=== PATIENT | male | born 1975 | race Caucasian/White ===

== ENCOUNTER 2021-02-13 21:26 | Inpatient (IN) | payer OTHER ==
[2021-02-13] MEDS ORDERED: SODIUM CHLORIDE 0.9% 1,000 ML IV ONE (21:50)
--- NOTE | 2021-02-13 21:58 | ED ---
General Adult HPI - General Chief complaint: Back Pain/Injury Stated complaint: Kindey infection Time Seen by Provider: 02/13/21 21:35 Source: patient Mode of arrival: wheelchair Limitations: no limitations - History of Present Illness Initial comments: 45 year-old male patient who is paraplegic, wheelchair bound presents to the emergency department for evaluation of bilateral flank pain, low back, and abdominal spasms. Patient states that symptoms have been worsening over the last week. States over the last few days he noted that his urine has been dark orange/brown color. Reports excessive sweating which he states is his body's usual response to pain. Denies any known fevers. Denies nausea or vomiting. States that his stools have been normal. He does straight cath for urine. States he has known enlargement of the left kidney, he is still awaiting appointment with urology to figure out why. Did have an emergency visit at [facility] last week, CT showed severe left sided hydronephrosis, no ureter dilation. Patient is concerned he may have a kidney infection. Patient denies any recent rash, cough, shortness of breath, chest pain, numbness, tingling, dizziness, weakness, headache, visual changes, or any other complaints. - Related Data Allergies Allergy/AdvReac Type Severity Reaction Status Date / Time Penicillins Allergy Unknown Verified 02/13/21 21:33 Review of Systems ROS Statement: Those systems with pertinent positive or pertinent negative responses have been documented in the HPI. ROS Other: All systems not noted in ROS Statement are negative. Past Medical History Additional Past Medical History / Comment(s): C-6, C-7 quad 1992 History of Any Multi-Drug Resistant Organisms: MRSA Date of last positivie culture/infection: 2016 MDRO Source:: arm Additional Past Surgical History / Comment(s): orthopedic Past Psychological History: No Psychological Hx Reported Smoking Status: Never smoker Past Alcohol Use History: None Reported Past Drug Use History: None Reported General Exam Limitations: no limitations General appearance: alert, in no apparent distress, other (This is a well- developed, well-nourished adult male patient in no acute distress. Vital signs upon presentation are 98.5F, pulse 90, respirations 18, blood pressure 167/81, pulse ox 98% on room air.) Eye exam: Present: normal appearance, PERRL, EOMI. Absent: scleral icterus, conjunctival injection, periorbital swelling ENT exam: Present: normal exam, normal oropharynx, mucous membranes moist Respiratory exam: Present: normal lung sounds bilaterally. Absent: respiratory distress, wheezes, rales, rhonchi, stridor Cardiovascular Exam: Present: regular rate, normal rhythm, normal heart sounds. Absent: systolic murmur, diastolic murmur, rubs, gallop, clicks GI/Abdominal exam: Present: soft, normal bowel sounds. Absent: distended, tenderness, guarding, rebound, rigid Back exam: Present: normal inspection, CVA tenderness (R), CVA tenderness (L) Neurological exam: Present: alert, oriented X3, CN II-XII intact Psychiatric exam: Present: normal affect, normal mood Skin exam: Present: warm, dry, intact, normal color. Absent: rash Course Vital Signs 02/13/21 21:28 Temperature 98.5 F Pulse Rate 90 Respiratory 18 Rate Blood Pressure 167/81 O2 Sat by Pulse 98 Oximetry Medical Decision Making - Medical Decision Making 45-year-old male patient who is paraplegic presents to the emergency department today for evaluation of bilateral flank pain, abdominal cramping, dark urine. Physical examination did reveal bilateral CVA tenderness. Abdominal distention. Labs reviewed and did reveal white blood cell count at 13.9, BUN 23, creatinine 0.74. Urinalysis did show 1+ protein, 1+ bilirubin, large leukocyte esterase, 29 white blood cells, moderate urine mucus. Patient did have out side CT performed at [facility] on 02/04/2021 which showed severe left-sided hyd ronephrosis. Renal collecting system is dilated up to 15.2 cm. Gallbladder was contracted. No biliary ductal dilatation. Patient be admitted to the hospital for evaluation by urology and for IV antibiotics. He is agreeable this plan. Case discussed with my attending Dr. Lauren. - Lab Data Result diagrams: 02/13/21 22:00 02/13/21 22:00 Lab Results 02/13/21 02/13/21 02/13/21 Range/Units 22:00 22:00 22:00 WBC 13.9 H (3.8-10.6) k/uL RBC 4.42 (4.30-5.90) m/uL Hgb 12.9 L (13.0-17.5) gm/dL Hct 38.1 L (39.0-53.0) % MCV 86.3 (80.0-100.0) fL MCH 29.1 (25.0-35.0) pg MCHC 33.7 (31.0-37.0) g/dL RDW 13.4 (11.5-15.5) % Plt Count 780 H (150-450) k/uL MPV 6.5 Neutrophils % 89 % Lymphocytes % 6 % Monocytes % 3 % Eosinophils % 1 % Basophils % 0 % Neutrophils # 12.4 H (1.3-7.7) k/uL Lymphocytes # 0.9 L (1.0-4.8) k/uL Monocytes # 0.5 (0-1.0) k/uL Eosinophils # 0.1 (0-0.7) k/uL Basophils # 0.1 (0-0.2) k/uL Sodium 137 (137-145) mmol/L Potassium 4.8 (3.5-5.1) mmol/L Chloride 100 (98-107) mmol/L Carbon Dioxide 27 (22-30) mmol/L Anion Gap 10 mmol/L BUN 23 H (9-20) mg/dL Creatinine 0.74 (0.66-1.25) mg/dL Est GFR (CKD-EPI)AfAm >90 (>60 ml/min/1.73 sqM) Est GFR (CKD-EPI)NonAf >90 (>60 ml/min/1.73 sqM) Glucose 189 H (74-99) mg/dL Plasma Lactic Acid [place] (0.7-2.0) mmol/L Calcium 8.9 (8.4-10.2) mg/dL Total Bilirubin 0.8 (0.2-1.3) mg/dL AST 52 (17-59) U/L ALT 64 H (4-49) U/L Alkaline Phosphatase 181 H (38-126) U/L Total Protein 6.6 (6.3-8.2) g/dL Albumin 3.2 L (3.5-5.0) g/dL Urine Color Yellow Urine Appearance Clear (Clear) Urine pH 5.5 (5.0-8.0) Ur Specific [place] 1.033 (1.001-1.035) Urine Protein 1+ H (Negative) Urine Glucose (UA) Negative (Negative) Urine Ketones Negative (Negative) Urine Blood Negative (Negative) Urine Nitrite Negative (Negative) Urine Bilirubin 1+ H (Negative) Urine Urobilinogen 4.0 (<2.0) mg/dL Ur Leukocyte Esterase Large H (Negative) Urine RBC 2 (0-5) /hpf Urine WBC 29 H (0-5) /hpf Ur Squamous Epith Cells 3 (0-4) /hpf Hyaline Casts 1 (0-2) /lpf Urine Mucus Moderate H (None) /hpf 02/13/21 Range/Units 22:00 WBC (3.8-10.6) k/uL RBC (4.30-5.90) m/uL Hgb (13.0-17.5) gm/dL Hct (39.0-53.0) % MCV (80.0-100.0) fL MCH (25.0-35.0) pg MCHC (31.0-37.0) g/dL RDW (11.5-15.5) % Plt Count (150-450) k/uL MPV Neutrophils % % Lymphocytes % % Monocytes % % Eosinophils % % Basophils % % Neutrophils # (1.3-7.7) k/uL Lymphocytes # (1.0-4.8) k/uL Monocytes # (0-1.0) k/uL Eosinophils # (0-0.7) k/uL Basophils # (0-0.2) k/uL Sodium (137-145) mmol/L Potassium (3.5-5.1) mmol/L Chloride (98-107) mmol/L Carbon Dioxide (22-30) mmol/L Anion Gap mmol/L BUN (9-20) mg/dL Creatinine (0.66-1.25) mg/dL Est GFR (CKD-EPI)AfAm (>60 ml/min/1.73 sqM) Est GFR (CKD-EPI)NonAf (>60 ml/min/1.73 sqM) Glucose (74-99) mg/dL Plasma Lactic Acid [place] 1.7 (0.7-2.0) mmol/L Calcium (8.4-10.2) mg/dL Total Bilirubin (0.2-1.3) mg/dL AST (17-59) U/L ALT (4-49) U/L Alkaline Phosphatase (38-126) U/L Total Protein (6.3-8.2) g/dL Albumin (3.5-5.0) g/dL Urine Color Urine Appearance (Clear) Urine pH (5.0-8.0) Ur Specific [place] (1.001-1.035) Urine Protein (Negative) Urine Glucose (UA) (Negative) Urine Ketones (Negative) Urine Blood (Negative) Urine Nitrite (Negative) Urine Bilirubin (Negative) Urine Urobilinogen (<2.0) mg/dL Ur Leukocyte Esterase (Negative) Urine RBC (0-5) /hpf Urine WBC (0-5) /hpf Ur Squamous Epith Cells (0-4) /hpf Hyaline Casts (0-2) /lpf Urine Mucus (None) /hpf Disposition Clinical Impression: UTI (urinary tract infection), Hydronephrosis, left Disposition: ADMITTED IP TO THIS [facility] Condition: Serious Referrals: Jameson Lewis MD [Primary Care Provider] - 1-2 days Decision to Admit Reason: Admit from [facility] Decision Date: 02/13/21 Decision Time: 23:37
[2021-02-13 22:07] LABS: Basophils # (A) 0.1 k/uL (0-0.2); Basophils % (A) 0 %; Eosinophils # (A) 0.1 k/uL (0-0.7); Eosinophils % (A) 1 %; HCT 38.1 % (39.0-53.0); HGB 12.9 gm/dL (13.0-17.5); Lymphocytes # (A) 0.9 k/uL (1.0-4.8); Lymphocytes % (A) 6 %; MCH 29.1 pg (25.0-35.0); MCHC 33.7 g/dL (31.0-37.0); MCV 86.3 fL (80.0-100.0); Mean Platelet Volume 6.5; Monocytes # (A) 0.5 k/uL (0-1.0); Monocytes % (A) 3 %; Neutrophils # (A) 12.4 k/uL (1.3-7.7); Neutrophils % (A) 89 %; Platelet Count 780 k/uL (150-450); RBC 4.42 m/uL (4.30-5.90); RDW 13.4 % (11.5-15.5); WBC 13.9 k/uL (3.8-10.6)
[2021-02-13 22:19] LABS: ALT 64 U/L (4-49); AST 52 U/L (17-59); African American GFR (CKD) >90 (>60 ml/min/1.73 sqM); Albumin 3.2 g/dL (3.5-5.0); Alkaline Phosphatase 181 U/L (38-126); Anion Gap 10 mmol/L; Blood Urea Nitrogen 23 mg/dL (9-20); Calcium 8.9 mg/dL (8.4-10.2); Carbon Dioxide 27 mmol/L (22-30); Chloride 100 mmol/L (98-107); Glucose 189 mg/dL (74-99); Non-African American GFR(CKD) >90 (>60 ml/min/1.73 sqM); Potassium 4.8 mmol/L (3.5-5.1); Sodium 137 mmol/L (137-145); Total Bilirubin 0.8 mg/dL (0.2-1.3); Total Protein 6.6 g/dL (6.3-8.2)
[2021-02-13 22:47] LABS: Appearance,Urine Clear (Clear); Bilirubin,Urine 1+ (Negative); Blood,Urine Negative (Negative); Color,Urine Yellow; Glucose,Urine (UA) Negative (Negative); Hyaline Casts,Urine 1 /lpf (0-2); Ketones,Urine Negative (Negative); Leukocyte Esterase,Urine Large (Negative); Mucus,Urine Moderate /hpf; Nitrite,Urine Negative (Negative); PH, Urine 5.5 (5.0-8.0); Protein,Urine 1+ (Negative); RBC,Urine 2 /hpf (0-5); Specific Gravity,Urine 1.033 (1.001-1.035); Squamous Epithelial Cell,Urine 3 /hpf (0-4); WBC,Urine 29 /hpf (0-5)
[2021-02-13] MEDS ORDERED: NALOXONE 0.4 MG/ML 1 ML VIAL IV PRN (23:20)
[2021-02-13] MEDS: SODIUM CHLORIDE 0.9% 1,000 ML IV SCH (23:26)
[2021-02-13] MEDS ORDERED: ONDANSETRON 4 MG/2 ML VIAL IVP STA (23:37)
[2021-02-13] MEDS ORDERED: HYDROmorphone 1 MG/ML 1 ML SYRINGE IVP STA (23:37)
[2021-02-14] MEDS: HYDROmorphone 1 MG/ML 1 ML SYRINGE IVP PRN ×5 (00:28→20:45)
[2021-02-14] MEDS: OXYBUTYNIN CHLORIDE 5 MG TAB PO SCH (07:52)
[2021-02-14] MEDS: BACLOFEN 10 MG TAB PO SCH ×2 (07:52→19:43)
[2021-02-14] MEDS ORDERED: AMPHETAMINE PO PRN (10:29)
[2021-02-14] MEDS ORDERED: [UNRECOGNIZED DRUG - OTHER] PO PRN (10:29)
[2021-02-14] MEDS ORDERED: DEXTROAMPHETAMINE PO PRN (10:29)
--- NOTE | 2021-02-14 10:32 | P.GSCN ---
History of Present Illness Consult date: 02/14/21 Reason for Consult: Left Hydronephrosis History of present illness: This is a 45-year-old male paraplegic, secondary to C5 spinal cord injury. He presented to the hospital with severe left flank pain, of note he was recently evaluated at [facility], CT scan was obtained at that time that showed severe hydronephrosis on the left, with a normal right contralateral kidney. He indicated he has history of chronic hydronephrosis, previously evaluated in [place]. Underwent a stent placement in [place] in 2017, stent was placed for hydronephrosis and pain, and at that time his pain resolved after stent placement, the stent was subsequently removed, and he has not followed up since that time. He has hx of neurogenic bladder, being managed by [facility]. He also complains of new onset constipation. Evaluation he is complaining of left flank pain, he is also complaining of flushing and sweating. Denies any dysuria, gross hematuria, fevers or chills. Review of Systems - Constitutional Reports night sweats, Reports sweats, Denies chills, Denies fever - EENT Ears, nose, mouth and throat: Denies dysphagia - Cardiovascular Denies chest pain, Denies shortness of breath - Respiratory Denies cough, Denies 7 - Gastrointestinal Reports constipation - Genitourinary Reports flank pain, Denies dysuria, Denies hematuria - Neurological Denies headaches, Denies syncope Past Medical History Additional Past Medical History / Comment(s): C-6, C-7 quad 1992 History of Any Multi-Drug Resistant Organisms: MRSA Year Discovered:: 2016 MDRO Source:: arm Additional Past Surgical History / Comment(s): orthopedic Past Psychological History: No Psychological Hx Reported Smoking Status: Never smoker Past Alcohol Use History: None Reported Past Drug Use History: None Reported Medications and Allergies Home Medications Medication Instructions Recorded Confirmed Type Baclofen [Lioresal] 10 mg PO BID-W/MEALS 02/13/21 02/13/21 History Dextroamphetamine/Amphetamine 15 mg PO BID PRN 02/13/21 02/13/21 History [Dextroamp-Amphetamin 15 mg Tab] Oxybutynin Chloride 5 mg PO DAILY 02/13/21 02/13/21 History Testosterone Cypionate 200 mg IM MO 02/13/21 02/13/21 History [Depo-Testosterone] Allergies Allergy/AdvReac Type Severity Reaction Status Date / Time Penicillins Allergy Unknown Verified 02/13/21 21:33 Surgical - Exam Vital Signs Temp Pulse Resp BP Pulse Ox 98.5 F 90 18 167/81 98 02/13/21 21:28 02/13/21 21:28 02/13/21 21:28 02/13/21 21:28 02/13/21 21:28 - General well developed, well nourished, moderate distress, moderate pain - Eyes PERRL, normal ocular movement - ENT normal nares, normal mucosa - Respiratory normal expansion, normal respiratory effort - Abdomen Abdomen: soft, non tender, no distended - Psychiatric oriented to time, oriented to person, oriented to place, speech is normal Results - Labs 02/13/21 22:00 02/13/21 22:00 Abnormal Lab Results - Last 24 Hours (Table) 02/13/21 02/13/21 02/13/21 Range/Units 22:00 22:00 22:00 WBC 13.9 H (3.8-10.6) k/uL Hgb 12.9 L (13.0-17.5) gm/dL Hct 38.1 L (39.0-53.0) % Plt Count 780 H (150-450) k/uL Neutrophils # 12.4 H (1.3-7.7) k/uL Lymphocytes # 0.9 L (1.0-4.8) k/uL BUN 23 H (9-20) mg/dL Glucose 189 H (74-99) mg/dL ALT 64 H (4-49) U/L Alkaline Phosphatase 181 H (38-126) U/L Albumin 3.2 L (3.5-5.0) g/dL Urine Protein 1+ H (Negative) Urine Bilirubin 1+ H (Negative) Ur Leukocyte Esterase Large H (Negative) Urine WBC 29 H (0-5) /hpf Urine Mucus Moderate H (None) /hpf Microbiology - Last 24 Hours (Table) 02/13/21 22:00 Urine Culture - Preliminary Urine,Voided Diabetes panel 02/13/21 Range/Units 22:00 Sodium 137 (137-145) mmol/L Potassium 4.8 (3.5-5.1) mmol/L Chloride 100 (98-107) mmol/L Carbon Dioxide 27 (22-30) mmol/L BUN 23 H (9-20) mg/dL Creatinine 0.74 (0.66-1.25) mg/dL Glucose 189 H (74-99) mg/dL Calcium 8.9 (8.4-10.2) mg/dL AST 52 (17-59) U/L ALT 64 H (4-49) U/L Alkaline Phosphatase 181 H (38-126) U/L Total Protein 6.6 (6.3-8.2) g/dL Albumin 3.2 L (3.5-5.0) g/dL Calcium panel 02/13/21 Range/Units 22:00 Calcium 8.9 (8.4-10.2) mg/dL Albumin 3.2 L (3.5-5.0) g/dL Pituitary panel 02/13/21 Range/Units 22:00 Sodium 137 (137-145) mmol/L Potassium 4.8 (3.5-5.1) mmol/L Chloride 100 (98-107) mmol/L Carbon Dioxide 27 (22-30) mmol/L BUN 23 H (9-20) mg/dL Creatinine 0.74 (0.66-1.25) mg/dL Glucose 189 H (74-99) mg/dL Calcium 8.9 (8.4-10.2) mg/dL Adrenal panel 02/13/21 Range/Units 22:00 Sodium 137 (137-145) mmol/L Potassium 4.8 (3.5-5.1) mmol/L Chloride 100 (98-107) mmol/L Carbon Dioxide 27 (22-30) mmol/L BUN 23 H (9-20) mg/dL Creatinine 0.74 (0.66-1.25) mg/dL Glucose 189 H (74-99) mg/dL Calcium 8.9 (8.4-10.2) mg/dL Total Bilirubin 0.8 (0.2-1.3) mg/dL AST 52 (17-59) U/L ALT 64 H (4-49) U/L Alkaline Phosphatase 181 H (38-126) U/L Total Protein 6.6 (6.3-8.2) g/dL Albumin 3.2 L (3.5-5.0) g/dL Assessment and Plan Assessment: 45-year-old male paraplegic, secondary to C5 spinal cord injury. History of chronic hydronephrosis on left, previous stent placement for pain. On evaluation to bleeding left flank pain, also having signs of autonomic dy sreflexia. Given his pain and his neurological sign, we'll proceed with stent placement on the left. Discussed that this pain, and autonomic dysreflexia signs could be secondary to his constipation. But given his flank pain and the CT finding we'll proceed with stent placement, we'll also start him on a bowel regimen -OR for left stent placement -Continue antibiotics -Recommend neurology consult given his signs of autonomic dysreflexia, and his hx of spianl cord injury
[2021-02-14] MEDS ORDERED: LIDOCAINE 1% INJ 10MG/ML (20 ML MDV) ONE (10:35)
[2021-02-14] MEDS ORDERED: fentaNYL (PF) 50 MCG/ML 2 ML AMP ONE (10:35)
[2021-02-14] MEDS ORDERED: PROPOFOL 10 MG/ML 20 ML VIAL IV ONE (10:35)
[2021-02-14] MEDS ORDERED: MIDAZOLAM 2 MG/2 ML VIAL ONE (10:35)
[2021-02-14] MEDS ORDERED: LACTATED RINGERS 1,000 ML IV ONE (10:39)
[2021-02-14] MEDS ORDERED: SODIUM CHLORIDE 0.9% 50 ML with GENTAMICIN 80 MG IV ONE ×2 (10:57)
[2021-02-14] MEDS ORDERED: IOPAMIDOL-370 50ML BTL IRRIGATION ONE ×2 (11:01)
--- NOTE | 2021-02-14 11:37 | P.OP ---
Date of Procedure: 02/14/21 Preoperative Diagnosis: Left hydronephrosis Postoperative Diagnosis: Same Procedure(s) Performed: Cystoscopy, left retrograde pyelogram, stent placement Implants: 6-Latvian by 28 cm stent Anesthesia: MARICARMEN Surgeon: Nathanael Waletrs Estimated Blood Loss (ml): 1 Pathology: other (Left renal urine for culture) Condition: stable Disposition: PACU Indications for Procedure: This is a 45-year-old male paraplegic, he presented to the hospital with left flank pain, and signs concerning for autonomic dysreflexia. Computed tomography scan at [facility] showed severe left hydronephrosis, and no dilation of the ureter. Discussed with him given his flank pain, hydronephrosis, and neurological signs, the next steps to proceed with stent placement. Discussed the risk of the procedure. He understood all the risk and agreed to proceed Operative Findings: Severe left-sided hydronephrosis, narrowing in the proximal ureter. malrotated kidney, Description of Procedure: Patient brought to the operating room, general anesthesia was induced. He was prepped and draped in sterile fashion and placed in dorsal lithotomy position. A cystoscopy fitted with a 22-Latvian sheath was inserted per urethra, cystoscopy was performed which showed no abnormality within the bladder. Of note patient had an enlarged prostate with large median lobe. The left ureteral orifice was visualized and intubated with an open-ended catheter, retrograde pyelogram was performed which showed a normal caliber ureter, but along the proximal ureter there was severe narrowing and the ureter was medialized. There was severe dilation of the collecting system. Next a wire was advanced through the catheter and the catheter was advanced into the collecting system. At this point purulent urine was noticed draining from the catheter. At this time more than 250 mL of purulent urine was drained from the left collecting system and sent for culture. At this time the wire was readvanced through the catheter the catheter was removed with the wire in place. Next a ureteral stent was passed over the wire, the proximal curl was visualized on fluoroscopy and the distal curl was visualized using the cystoscope. The bladder was emptied and the case. 18-Latvian Guerrier was placed. Patient tolerated the procedure well was taken to PACU in stable condition
--- NOTE | 2021-02-14 11:51 | FL ---
EXAMINATION TYPE: FL urography retrograde DATE OF EXAM: 02/14/2021 COMPARISON: NONE HISTORY: Left-sided kidney stones. TECHNIQUE: Fluoroscopy. FINDINGS: Fluoroscopic guidance was provided during retrograde urogram with stent insertion procedur e performed by Dr. Lui. A total of 52 seconds of fluoroscopic time was utilized during the proced ure and 2 spot images was acquired. Images acquired show ureteral opacification subsequent advancemen t of a ureter stent. IMPRESSION: As Above.
[2021-02-14 12:41] VITALS: BMI 22.4
[2021-02-14] MEDS: SODIUM CHLORIDE 0.9% 1,000 ML IV SCH (15:44)
[2021-02-14] MEDS ORDERED: BACLOFEN 10 MG TAB PO SCH (17:30)
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
[2021-02-14] MEDS: ENOXAPARIN 40 MG/0.4 ML SYRINGE SQ SCH (19:42)
[2021-02-14] MEDS: PSYLLIUM HUSK 100% 6 GM PACKET PO SCH (19:43)
[2021-02-14] MEDS: MELATONIN 3 MG TABLET PO SCH (19:43)
--- NOTE | 2021-02-14 19:50 | XR ---
EXAM: Abdomen radiograph. HISTORY: Pain. TECHNIQUE: Supine AP view. COMPARISON: None available. FINDINGS: There is demonstration of a left ureteral stent. There is moderate amount of stool throughout the col on with mild colonic gas and nonobstructive bowel gas pattern. There are no pathologic calcifications . No acute osseous abnormality seen. IMPRESSION: Nonobstructive bowel gas pattern. Moderate stool burden.
[2021-02-14] MEDS: LACTATED RINGERS 1,000 ML IV SCH (21:09)
[2021-02-15] MEDS: HYDROmorphone 1 MG/ML 1 ML SYRINGE IVP PRN ×3 (01:52→20:27)
[2021-02-15] MEDS: LACTATED RINGERS 1,000 ML IV SCH ×4 (04:21→22:20)
[2021-02-15] MEDS: BACLOFEN 10 MG TAB PO SCH ×2 (08:16→20:27)
[2021-02-15] MEDS: OXYBUTYNIN CHLORIDE 5 MG TAB PO SCH (08:16)
[2021-02-15] MEDS: ENOXAPARIN 40 MG/0.4 ML SYRINGE SQ SCH (08:16)
[2021-02-15] MEDS: PSYLLIUM HUSK 100% 6 GM PACKET PO SCH ×2 (08:16→20:27)
[2021-02-15] MEDS ORDERED: OXYBUTYNIN CHLORIDE 5 MG TAB PO SCH (09:00)
--- NOTE | 2021-02-15 12:59 | P.PN ---
Subjective Progress Note Date: 02/15/21 Postoperative day #1, status post left stent placement. purulent urine drained from the left collecting system. vital signs stable, denies any flank pain or chills this am. Objective - Vital Signs Vital signs: Vital Signs Temp 98.7 F 02/15/21 07:37 Pulse 71 02/15/21 07:37 Resp 18 02/15/21 07:37 BP 143/82 02/15/21 07:37 Pulse Ox 98 02/15/21 07:37 Intake & Output 02/14/21 02/15/21 02/15/21 18:59 06:59 18:59 Intake Total 952 Output Total 751 600 Balance 201 -600 Weight 79.379 kg Intake: IV 952 Output: Urine 750 600 Estimated Blood Loss 1 Other: Voiding Method Indwelling Catheter Indwelling Catheter Indwelling Catheter # Bowel Movements 1 - Constitutional General appearance: Present: no acute distress - Gastrointestinal General gastrointestinal: Present: soft. Absent: distended - Psychiatric Psychiatric: Present: A&O x's 3 - Labs CBC & Chem 7: 02/13/21 22:00 02/13/21 22:00 Labs: Microbiology - Last 24 Hours (Table) 02/14/21 11:06 Urine Culture - Preliminary Urine,Voided Assessment and Plan Assessment: 45-year-old male paraplegic, secondary to C5 spinal cord injury. History of chronic hydronephrosis on left, previous stent placement for pain. On initial evaluation having left flank pain, also having signs of autonomic dysreflexia. POD #1 S/P stent placement. purulent urine drained from the left collecting system -Continue IV antibiotics, recommend to keep in the hospital, until urine cultures finalized from the left collecting system. We'll need minimum of 14 days of antibiotic -Can D/C tatum prior to discharge and can resume CIC as an outpatient -F/U 4 weeks in urology clinic
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
[2021-02-15] MEDS: MELATONIN 3 MG TABLET PO SCH (20:27)
[2021-02-16 02:05] VITALS: RESP 16
[2021-02-16] MEDS: HYDROmorphone 1 MG/ML 1 ML SYRINGE IVP PRN ×2 (05:49→12:49)
[2021-02-16 07:30] LABS: African American GFR (CKD) >90 (>60 ml/min/1.73 sqM); Anion Gap 5 mmol/L; Blood Urea Nitrogen 16 mg/dL (9-20); Calcium 8.3 mg/dL (8.4-10.2); Carbon Dioxide 30 mmol/L (22-30); Chloride 104 mmol/L (98-107); Glucose 99 mg/dL (74-99); Non-African American GFR(CKD) >90 (>60 ml/min/1.73 sqM); Potassium 4.6 mmol/L (3.5-5.1); Sodium 139 mmol/L (137-145)
[2021-02-16 07:56] LABS: Basophils % (A) 1 %; Eosinophils # (A) 0.1 k/uL (0-0.7); Eosinophils % (A) 1 %; HCT 38.1 % (39.0-53.0); HGB 12.8 gm/dL (13.0-17.5); Lymphocytes # (A) 1.3 k/uL (1.0-4.8); Lymphocytes % (A) 23 %; MCH 29.3 pg (25.0-35.0); MCHC 33.6 g/dL (31.0-37.0); MCV 87.3 fL (80.0-100.0); Mean Platelet Volume 6.7; Monocytes # (A) 0.4 k/uL (0-1.0); Monocytes % (A) 6 %; Neutrophils # (A) 4.1 k/uL (1.3-7.7); Neutrophils % (A) 69 %; Platelet Count 643 k/uL (150-450); RBC 4.36 m/uL (4.30-5.90); RDW 13.7 % (11.5-15.5)
[2021-02-16 07:57] VITALS: BP 151/85; PULSE 74; TEMP 97.8
[2021-02-16] MEDS: PSYLLIUM HUSK 100% 6 GM PACKET PO SCH (08:15)
[2021-02-16] MEDS: BACLOFEN 10 MG TAB PO SCH (08:16)
[2021-02-16] MEDS: ENOXAPARIN 40 MG/0.4 ML SYRINGE SQ SCH (08:16)
[2021-02-16] MEDS: OXYBUTYNIN CHLORIDE 5 MG TAB PO SCH (08:16)
[2021-02-16] MEDS ORDERED: TESTOSTERONE CYPIONATE 200 MG/ML 1ML VIAL IM SCH (09:00)
[2021-02-16] MEDS: LACTATED RINGERS 1,000 ML IV SCH (11:02)
[2021-02-16] MEDS ORDERED: AMOXIC-POT CLAV 875-125MG 1 EACH TAB PO STA (11:22)
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
== END 2021-02-16 13:18 | disposition home or self-care (01) | DRG 660 ==
LOC: EC 21:26 → 4SSUR 23:08
PROVIDERS: ADMIT Hospitalist; ATTEND Hospitalist
PROC: 0T778DZ Dilation of Left Ureter with Intraluminal Device, Via Natural or Artificial Opening Endoscopic (ICD-10-PCS; principal; 2021-02-14 09:59)
PROC: BT1F1ZZ Fluoroscopy of Left Kidney, Ureter and Bladder using Low Osmolar Contrast (ICD-10-PCS; 2021-02-14 09:59)
DX: N13.6 Pyonephrosis (principal); G82.20 Paraplegia, unspecified; N39.0 Urinary tract infection, site not specified; Z99.3 Dependence on wheelchair; Z86.14 Personal history of Methicillin resistant Staphylococcus aureus infection; S14.105S Unspecified injury at C5 level of cervical spinal cord, sequela; V49.9XXS Car occupant (driver) (passenger) injured in unspecified traffic accident, sequela; Z20.822 Contact with and (suspected) exposure to COVID-19; N31.9 Neuromuscular dysfunction of bladder, unspecified; K59.09 Other constipation; E88.09 Other disorders of plasma-protein metabolism, not elsewhere classified; R79.89 Other specified abnormal findings of blood chemistry; G90.4 Autonomic dysreflexia
CPT/HCPCS: 36415; 74018; 74420; 80048; 80053; 81001; 83605; 84145; 85025; 87086; 87635; 99285

== ENCOUNTER → 2021-04-15 | Outpatient (CLI) | payer OTHER ==
[2021-04-15 13:58] LABS: Basophils # (A) 0.1 k/uL (0-0.2); Basophils % (A) 1 %; Eosinophils # (A) 0.1 k/uL (0-0.7); Eosinophils % (A) 2 %; HCT 45.1 % (39.0-53.0); Lymphocytes # (A) 1.8 k/uL (1.0-4.8); Lymphocytes % (A) 33 %; MCH 30.1 pg (25.0-35.0); MCHC 33.2 g/dL (31.0-37.0); MCV 90.6 fL (80.0-100.0); Mean Platelet Volume 7.7; Monocytes # (A) 0.4 k/uL (0-1.0); Monocytes % (A) 8 %; Neutrophils # (A) 2.8 k/uL (1.3-7.7); Neutrophils % (A) 54 %; Platelet Count 258 k/uL (150-450); RBC 4.98 m/uL (4.30-5.90); RDW 15.2 % (11.5-15.5); WBC 5.3 k/uL (3.8-10.6)
[2021-04-15 14:00] LABS: Appearance,Urine Cloudy (Clear); Bacteria,Urine Many /hpf; Bilirubin,Urine Negative (Negative); Blood,Urine Small (Negative); Color,Urine Yellow; Glucose,Urine (UA) Negative (Negative); Ketones,Urine Negative (Negative); Leukocyte Esterase,Urine Large (Negative); Nitrite,Urine Positive (Negative); Protein,Urine 1+ (Negative); RBC,Urine 11 /hpf (0-5); Specific Gravity,Urine 1.011 (1.001-1.035); Squamous Epithelial Cell,Urine 2 /hpf (0-4); Urobilinogen,Urine <2.0 mg/dL (<2.0); WBC,Urine >182 /hpf (0-5)
[2021-04-15 14:05] LABS: African American GFR (CKD) >90 (>60 ml/min/1.73 sqM); Anion Gap 8 mmol/L; Blood Urea Nitrogen 17 mg/dL (9-20); Calcium 9.2 mg/dL (8.4-10.2); Carbon Dioxide 21 mmol/L (22-30); Chloride 104 mmol/L (98-107); Glucose 103 mg/dL (74-99); Non-African American GFR(CKD) >90 (>60 ml/min/1.73 sqM); Sodium 133 mmol/L (137-145)
[2021-04-15 14:08] LABS: Potassium 4.8 mmol/L (3.5-5.1)
== END | disposition home or self-care (01) ==
LOC: LABPAT 12:52
PROVIDERS: ATTEND Urology
DX: Z01.812 Encounter for preprocedural laboratory examination (principal); N13.30 Unspecified hydronephrosis; N39.0 Urinary tract infection, site not specified
CPT/HCPCS: 36415; 80048; 81001; 85025; 87077; 87086; 87186

== ENCOUNTER → 2021-04-15 | Outpatient (CLI) | payer OTHER ==
[~2021-04-15] MED LIST: FUROSEMIDE 10 MG/ML 2 ML VIAL IV ONE
--- NOTE | 2021-04-15 15:43 | NM ---
EXAMINATION TYPE: NM lasix renogram DATE OF EXAM: 04/15/2021 COMPARISON: NONE HISTORY: Hydronephrosis Following administration of 9.2 mCi Tc 99m MAG3 with 20mg Lasix. Immediate images post injection FINDINGS: Left: 22.4 %. Right: 77.6 %. Max renal flow left: 9 minutes. Max renal flow right: 77.6 minutes. Reduced accumulation of radiotracer within the left renal collecting systems. After the administratio n of Lasix, there is delayed excretion from the left. T 1/2 left: undefined minutes. T 1/2 right: 25 minutes. IMPRESSION: Abnormal split renal function as discussed above. Correlate for left-sided hydronephrosis. No ultraso und or CAT scan available for comparison.
== END | disposition home or self-care (01) ==
LOC: RADNMMAIN 13:25
PROVIDERS: ATTEND Urology
DX: N13.30 Unspecified hydronephrosis (principal)
CPT/HCPCS: 78708; A9562

== ENCOUNTER → 2021-04-24 | Day surgery (SDC) | payer OTHER ==
[2021-04-20 17:33] VITALS: BMI 23.1
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
[~2021-04-24] MED LIST changes: +DEXAMETHASONE SOD PHOSPHATE 4 MG/ML 1 ML VIAL IV ONE; -FUROSEMIDE 10 MG/ML 2 ML VIAL IV ONE; +GENTAMICIN 120 MG in SODIUM CHLORIDE 0.9% 100 ML IVPB PRN; +IOPAMIDOL-370 50ML BTL MISCELLANE ONE; +LACTATED RINGERS 1,000 ML IV ONE; +LACTATED RINGERS 1,000 ML IV SCH; +LIDOCAINE 1% (10MG/ML) FOR IV START INTRADERMA PRN; +ONDANSETRON 4 MG/2 ML VIAL IVP ONE; +ONDANSETRON 4 MG/2 ML VIAL ONE
--- NOTE | 2021-04-24 16:54 | P.OP ---
Date of Procedure: 04/24/21 Preoperative Diagnosis: Left hydronephrosis Postoperative Diagnosis: Same Procedure(s) Performed: Cystoscopy, left retrograde pyelogram, ureteroscopy, ureteral balloon dilation, stent exchange Implants: 6-Nicaraguan by 28 cm stent Anesthesia: MARICARMEN Surgeon: Nathanael Walters Estimated Blood Loss (ml): 5 Pathology: none sent Condition: stable Disposition: PACU Indications for Procedure: This is a 46-year-old paraplegic male with history of chronic left hydrone phrosis. He presented to the hospital back on February 13, with sepsis secondary to UTI. He had a CT scan done that showed hydronephrosis. He underwent a stent placement on February 14, purulent drainage was drained from the collecting system. He subsequently underwent a MAG3 renogram that showed evidence of 22% split function in the left kidney. Of note on his initial CT on presentation there was no evidence of ureteral dilation, and the finding was concerning for UPJ obstruction. Discussed with him next up will be to proceed with a left retrograde pyelogram, to better evaluate the ureter. Discussed with him will plan on doing a ureteroscopy at the same setting, and we'll consider performing balloon dilation if there was evidence of UPJ obstruction. But discussed with him success rate is low, and if he does fail endoscopic approach than the next step would be to proceed with a pyeloplasty. Discussed with him the risk which includes but not limited to infection, bleeding, injury to the ureter. Of note his urine culture showed a Pseudomonas UTI, and he is currently on levofloxacin Operative Findings: Narrowing and the UPJ, torturous proximal ureter just distal to the UPJ Description of Procedure: Patient was brought to the operating room, general anesthesia was induced. He was prepped and draped in sterile fashion a placement dorsal lithotomy position. Cystoscopy fitted with a 21-[place]icar[place]uan sheath was inserted per urethra, cystoscopy was performed which showed no abnormality within the bladder. Attention was then carried to the left ureteral orifice, the stent was grasped and removed to the meatus. Next a sensor wire was advanced through the stent and the stent was removed with the wire in place. Next a ureteral catheter was advanced over the wire, the wire was removed with the catheter in place. Retrograde pyelogram was performed which showed significant narrowing at the UPJ with severe dilation of the collecting system. Of note the distal 2 cm to the UPJ was torturous. At this time a wire was advanced through the catheter and the catheter was removed the wire in place. Next the flexible ureteroscope was advanced over the wire. I attempted to pass the scope through the UPJ, but resistance was met, at this time advance the wires through the scope and attempted to advance it, but still was not able to. At this time the ureteroscope was withdrawn with the wire in place. Next a ureteral balloon dilator was passed over the wire, and the UPJ was dilated to 12-Nicaraguan under fluoroscopy. At this time the wire was readvanced through the ureteral balloon dilator and the balloon dilator was removed with the wire in place. Next a flexor ureteroscope was readvanced over the wire, I was able to advance the scope past the UPJ, renoscopy was performed showed no abnormality, but vision was limited due to cloudy urine within the collecting system, and significant dilation. Pullback ureteroscopy was performed which showed a narrowed UPJ, with a torturous proximal ureter distal to the UPJ. The rest of the ureter was normal. At this time as the ureteroscope was withdrawn and a wire was advanced through. A ureteral stent was passed over the wire, the proximal curl was visualized on fluoroscopy and the distal curl was visualized using the cystoscope. The bladder was emptied and the end of the case. A 18 [place]uan Guerrier catheter was placed with return of light . Patient tolerated the procedure well was taken to PACU in stable condition. He will remove his Guerrier catheter in 3 days, will undergo stent removal in 2 weeks
[2021-04-24 16:59] VITALS: TEMP 97
[2021-04-24 17:31] VITALS: RESP 17
[2021-04-24 17:56] VITALS: BP 138/83; PULSE 77
--- NOTE | 2021-04-25 08:20 | FL ---
Fluoroscopy HISTORY: Left-sided kidney stone 74 seconds fluoroscopy time supplied to the referring clinician. 3 intraoperative C-arm images docum ent the procedure. See dictated report from urology.
== END | disposition home or self-care (01) ==
LOC: OR 12:07
PROVIDERS: ATTEND Urology
DX: N13.6 Pyonephrosis (principal); G82.50 Quadriplegia, unspecified; Z96.0 Presence of urogenital implants; Z79.899 Other long term (current) drug therapy; Z87.891 Personal history of nicotine dependence; B96.5 Pseudomonas (aeruginosa) (mallei) (pseudomallei) as the cause of diseases classified elsewhere; Z86.19 Personal history of other infectious and parasitic diseases
CPT/HCPCS: 52332; 74420; C2625; C1769; J1100; J2405; Q9967

== ENCOUNTER → 2021-06-10 | Outpatient (CLI) | payer OTHER ==
--- NOTE | 2021-06-10 12:41 | CT ---
EXAMINATION TYPE: CT urogram wo/w con DATE OF EXAM: 06/10/2021 COMPARISON: Nuclear medicine renogram 04/15/2021 HISTORY: hydronephrosis CT DLP: 1117.5 mGycm, Automated Exposure Control for Dose Reduction was Utilized. CONTRAST: CT scan of the abdomen and pelvis is performed with oral and with IV Contrast, patient injected with 100 mL of Isovue 300. FINDINGS: LUNG BASES: No significant abnormality is appreciated. LIVER/GB: No significant abnormality is appreciated. PANCREAS: No significant abnormality is seen. SPLEEN: No significant abnormality is seen. ADRENALS: No significant abnormality is seen. KIDNEYS: The patulous appearance of the left kidney is seen, there is excretion with contrast materia l is symmetric fashion. The right ureter shows a normal course and caliber, left ureter is not seen o n delayed imaging due to the time of delay. There is no evident ureteral calculus, no nephrolithiasis . BOWEL: No significant abnormality is seen. Diverticular changes associated with the colon PROSTATE/SEMINAL VESICLES: Prostate is enlarged.. LYMPH NODES: No greater than 1cm abdominal or pelvic lymph nodes are appreciated. OSSEOUS STRUCTURES: Bilateral spondylolysis is present at L5, no listhesis. There is multilevel spond ylosis present. OTHER: Urinary bladder wall is thickened. 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 Correlate for possible chronic bladder outlet obstruction.
== END | disposition home or self-care (01) ==
LOC: RADCTMAIN 09:05
PROVIDERS: ATTEND Urology
DX: N13.30 Unspecified hydronephrosis (principal)
CPT/HCPCS: 74178; 74400; Q9967

== ENCOUNTER → 2021-07-22 | Outpatient (CLI) | payer OTHER | END | disposition home or self-care (01) | LOC: LABPAT 09:25 | PROVIDERS: ATTEND Urology | DX: Z53.9 Procedure and treatment not carried out, unspecified reason (principal) ==

== ENCOUNTER 2021-07-30 10:21 | Observation (INO) | payer OTHER ==
[2021-07-22 10:46] LABS: African American GFR (CKD) >90 (>60 ml/min/1.73 sqM); Anion Gap 5 mmol/L; Blood Urea Nitrogen 17 mg/dL (9-20); Calcium 9.2 mg/dL (8.4-10.2); Carbon Dioxide 27 mmol/L (22-30); Chloride 104 mmol/L (98-107); Glucose 90 mg/dL (74-99); Non-African American GFR(CKD) >90 (>60 ml/min/1.73 sqM); Potassium 4.2 mmol/L (3.5-5.1); Sodium 136 mmol/L (137-145)
[2021-07-22 11:12] LABS: Basophils # (A) 0.1 k/uL (0-0.2); Basophils % (A) 1 %; Eosinophils # (A) 0.1 k/uL (0-0.7); Eosinophils % (A) 2 %; HCT 46.7 % (39.0-53.0); HGB 16.1 gm/dL (13.0-17.5); Lymphocytes # (A) 1.7 k/uL (1.0-4.8); Lymphocytes % (A) 31 %; MCH 29.8 pg (25.0-35.0); MCHC 34.5 g/dL (31.0-37.0); MCV 86.5 fL (80.0-100.0); Mean Platelet Volume 8.1; Monocytes # (A) 0.3 k/uL (0-1.0); Monocytes % (A) 5 %; Neutrophils # (A) 3.3 k/uL (1.3-7.7); Neutrophils % (A) 60 %; Platelet Count 236 k/uL (150-450); RBC 5.39 m/uL (4.30-5.90); RDW 14.6 % (11.5-15.5); WBC 5.5 k/uL (3.8-10.6)
[2021-07-28 12:08] VITALS: BMI 22.4
[~2021-07-30 10:21] MED LIST changes: +CLINDAMYCIN 600 MG in DEXTROSE 5% IN WATER 50 ML IVPB PRN; +HEPARIN SODIUM,PORCINE/PF 5,000 UNIT/0.5 ML SYRINGE SQ PRN; +HYDROmorphone 0.5 MG/0.5 ML SYRINGE IVP PRN; -IOPAMIDOL-370 50ML BTL MISCELLANE ONE; -LACTATED RINGERS 1,000 ML IV ONE; -LACTATED RINGERS 1,000 ML IV SCH; -ONDANSETRON 4 MG/2 ML VIAL ONE; +SCOPOLAMINE 1.5MG/72HR PATCH TRANSDERM ONE
[2021-07-30] MEDS ORDERED: LACTATED RINGERS 1,000 ML IV ONE ×2 (11:30→14:38)
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
[2021-07-30] MEDS ORDERED: ROCURONIUM 10 MG/ML (5 ML VIAL) IV ONE (12:08)
[2021-07-30] MEDS ORDERED: .fentaNYL (PF) 50 MCG/ML 2 ML AMP ONE (12:08)
[2021-07-30] MEDS ORDERED: MIDAZOLAM 2 MG/2 ML VIAL ONE (12:08)
[2021-07-30] MEDS ORDERED: PROPOFOL 10 MG/ML 20 ML VIAL IV ONE (12:08)
[2021-07-30] MEDS ORDERED: GLYCOPYRROLATE 0.2 MG/ML 2 ML VIAL ONE (12:08)
[2021-07-30] MEDS ORDERED: LIDOCAINE 1% INJ 10MG/ML (20 ML MDV) ONE (12:08)
[2021-07-30] MEDS ORDERED: NEOSTIGMINE 1 MG/ML 10 ML VIAL ONE (12:08)
[2021-07-30] MEDS ORDERED: AMPHETAMINE PO PRN (14:54)
[2021-07-30] MEDS ORDERED: DEXTROAMPHETAMINE PO PRN (14:54)
[2021-07-30] MEDS ORDERED: [UNRECOGNIZED DRUG - OTHER] PO PRN (14:54)
--- NOTE | 2021-07-30 14:54 | P.OP ---
Date of Procedure: 07/30/21 Preoperative Diagnosis: Left sided hydronephrosis Postoperative Diagnosis: same Procedure(s) Performed: Robotic -assisted laparoscopic left pyeloplasty Implants: 6Fr X 28 cm stent in the left ureter Anesthesia: MARICARMEN Surgeon: Nathanael Walters Estimated Blood Loss (ml): 25 Pathology: other (left ureteropelvic junction) Condition: stable Disposition: PACU Indications for Procedure: this is a 46 yo male with hx of left-sided hydronephrosis he underwent a Lasix renogram which was consistent with obstruction, also showed a 23% split function on the left side. He also underwent a CT urogram that confirmed the evidence of obstruction on the left side. Option of a robotic pyeloplasty was discussed with him in detail. Discussed with him the risk which includes but not limited to bleeding, infection. Discussed risk of injury to the kidney, which could lead to an nephrectomy. Discussed the potential of recurrence of the obstruction. Specimen given his history of recurrent UTIs and neurogenic bladder using an increased risk of complication. He understood all the risk and agreed to proceed Operative Findings: Significant fibrotic tissue around the renal pelvis, and the proximal ureter Description of Procedure: he patient was taken to the operating room . General anesthesia was induced. She was prepped and draped in sterile fashion, she was placed in modified flank position . All pressure points were padded. The abdominal insufflation was achieved with the Veress needle. A 8 mm camera port was placed. Robotic trocars and acute care certified nursing assistant ports were placed under direct vision. The robot was docked into place. The colon was mobilized medially by incising along the white line of Toldt. Next the ureter was identified, the ureter was dissected and followed up to the renal pelvis. Of note there was significant fibrotic tissue surrounding the proximal ureter, and the renal pelvis. The fibrotic tissue was dissected off.. Next the ureteropelvic junction was identified, there was no crossing vessel. Next the incision was made in the renal pelvis, the ureteropelvic junction was dismembered. The ureteropelvic junction was excised and sent to pathology. The ureter was spatulated. The anastomosis was performed using two 4-0 V-lock in running fashion. Prior to completing the anastomosis a sensor wire was advanced through an Angiocath in the left upper quadrant. The sensor w hayley was advanced into the bladder. Next a ureteral stent was passed over the wire. The stent used was 6-[place] by 28 cm stent. After placing the stent the anastomosis was completed. Next a 10-[place] ANGIE was placed through the left lower quadrant. At this time the robot was undocked. The acute care certified nursing assistant port incision was closed using 0 Vicryl using the Enrike Ansari. All skin incisions were closed with 4-0 Monocryl and skin glue. Patient tolerated the procedure well was taken to recovery in stable condition
[2021-07-30] MEDS ORDERED: HYDROcodone/APAP 5-325MG 1 EACH TAB PO PRN (14:56)
[2021-07-30] MEDS ORDERED: LEVOFLOXACIN 500MG-D5W PMX 500 MG in DEXTROSE/WATER 1 100ML.BAG IVPB SCH (16:00)
[2021-07-30] MEDS: LACTATED RINGERS 1,000 ML IV SCH (19:54)
[2021-07-30] MEDS: D5-0.45% NACL WITH KCL 20MEQ/L 1,000 ML IV SCH (19:59)
[2021-07-30] MEDS: BACLOFEN 10 MG TAB PO SCH (20:37)
[2021-07-30] MEDS: HEPARIN SODIUM,PORCINE/PF 5,000 UNIT/0.5 ML SYRINGE SQ SCH (20:37)
[2021-07-30] MEDS: KETOROLAC 30 MG/ML 1 ML VIAL IVP SCH (20:37)
[2021-07-31] MEDS: KETOROLAC 30 MG/ML 1 ML VIAL IVP SCH ×3 (00:40→11:37)
[2021-07-31] MEDS: D5-0.45% NACL WITH KCL 20MEQ/L 1,000 ML IV SCH ×2 (00:41→09:00)
[2021-07-31] MEDS: LACTATED RINGERS 1,000 ML IV SCH (04:49)
[2021-07-31] MEDS: HEPARIN SODIUM,PORCINE/PF 5,000 UNIT/0.5 ML SYRINGE SQ SCH ×2 (04:53→11:38)
[2021-07-31] MEDS: BACLOFEN 10 MG TAB PO SCH (07:42)
[2021-07-31] MEDS ORDERED: OXYBUTYNIN CHLORIDE 5 MG TAB PO SCH (09:00)
[2021-07-31 14:04] VITALS: BP 102/50; PULSE 65; RESP 17; TEMP 97.8
--- NOTE | 2021-07-31 16:28 | P.DS ---
Providers Date of admission: 07/31/21 11:01 Attending physician: Nathanael Walters MD Primary care physician: Jameson Lewis [facility] Hospital Course: This is a 46-year-old male with history of left UPJ obstruction. He underwent a robotic left-sided pyeloplasty on July 30. Please see op note dated July 30 for surgery detail. He was admitted to the hospital postoperatively, the ANGIE drain was removed on postoperative day #1. He was discharged home on postoperative day #1. At time of discharge he was tolerating a diet, pain was well-controlled Plan - Discharge Summary Discharge Rx Participant: No New Discharge Prescriptions: New Ketorolac [Toradol] 10 mg PO Q6HR PRN #15 tab PRN Reason: Pain No Action Dextroamphetamine/Amphetamine [Dextroamp-Amphetamin 15 mg Tab] 15 mg PO BID PRN PRN Reason: @WORK Baclofen [Lioresal] 10 mg PO BID Testosterone Cypionate [Depo-Testosterone] 200 mg IM MO Cephalexin [Keflex] 250 mg PO 1800 Oxybutynin Chloride 5 mg PO DAILY Multivitamins, Thera [Multivitamin (formulary)] 1 tab PO DAILY Discharge Medication List Baclofen [Lioresal] 10 mg PO BID 02/13/21 [History] Dextroamphetamine/Amphetamine [Dextroamp-Amphetamin 15 mg Tab] 15 mg PO BID PRN 02/13/21 [History] Oxybutynin Chloride 5 mg PO DAILY 02/13/21 [History] Testosterone Cypionate [Depo-Testosterone] 200 mg IM MO 02/13/21 [History] Cephalexin [Keflex] 250 mg PO 1800 07/28/21 [History] Multivitamins, Thera [Multivitamin (formulary)] 1 tab PO DAILY 07/28/21 [History] Ketorolac [Toradol] 10 mg PO Q6HR PRN #15 tab 07/31/21 [Rx] Patient Instructions/Handouts: Hydronephrosis (DC) Activity/Diet/Wound Care/Special Instructions: increase fluid intake It's normal to see blood in the urine You may shower no baths You can remove your tatum in 2 weeks Discharge Disposition: HOME SELF-CARE
== END 2021-07-31 15:41 | disposition home or self-care (01) ==
LOC: OR 10:21 → 6NMEDSUR 15:10 → OR 07-31 10:44 → 6NMEDSUR 07-31 11:01
PROVIDERS: ADMIT Urology; ATTEND Urology
DX: N13.1 Hydronephrosis with ureteral stricture, not elsewhere classified (principal); N31.9 Neuromuscular dysfunction of bladder, unspecified; G82.50 Quadriplegia, unspecified; Z79.890 Hormone replacement therapy; Z79.899 Other long term (current) drug therapy; Z88.0 Allergy status to penicillin; Z98.1 Arthrodesis status; Z87.01 Personal history of pneumonia (recurrent); Z86.14 Personal history of Methicillin resistant Staphylococcus aureus infection; Z87.891 Personal history of nicotine dependence; Z98.890 Other specified postprocedural states
CPT/HCPCS: 50544; S2900; 80048; 85025; 86850; 86900; 86901; 87635; 88305

== ENCOUNTER → 2021-11-16 | Outpatient (CLI) | payer OTHER ==
[~2021-11-16] MED LIST changes: -CLINDAMYCIN 600 MG in DEXTROSE 5% IN WATER 50 ML IVPB PRN; -DEXAMETHASONE SOD PHOSPHATE 4 MG/ML 1 ML VIAL IV ONE; +FUROSEMIDE 10 MG/ML 2 ML VIAL IV ONE; -GENTAMICIN 120 MG in SODIUM CHLORIDE 0.9% 100 ML IVPB PRN; -HEPARIN SODIUM,PORCINE/PF 5,000 UNIT/0.5 ML SYRINGE SQ PRN; -HYDROmorphone 0.5 MG/0.5 ML SYRINGE IVP PRN; -LIDOCAINE 1% (10MG/ML) FOR IV START INTRADERMA PRN; -ONDANSETRON 4 MG/2 ML VIAL IVP ONE; -SCOPOLAMINE 1.5MG/72HR PATCH TRANSDERM ONE
--- NOTE | 2021-11-16 15:23 | NM ---
EXAMINATION TYPE: NM lasix renogram DATE OF EXAM: 11/16/2021 COMPARISON: CT urogram 06/10/2021, nuclear medicine Lasix renogram 04/15/2020 HISTORY: Hydronephrosis Following administration of 10.5 mCi Tc 99m MAG3 with 20mg Lasix. Immediate images post injection FINDINGS: Left: 25.2 %. Right: 74.8 %. Max renal flow left: 7 minutes. Max renal flow right: 74.8 minutes. Satisfactory accumulation of radiotracer within right renal collecting system. After the administrati on of Lasix, there is prompt excretion from the right collecting systems. Delayed excretion on the le ft noted. T 1/2 left: NA minutes. T 1/2 right: NA minutes. IMPRESSION: Abnormal split renal function as discussed above. Findings suggest left-sided hydronephrosis. No sign ificant interval change from prior exam
== END | disposition home or self-care (01) ==
LOC: RADNMMAIN 13:03
PROVIDERS: ATTEND Urology
DX: R94.4 Abnormal results of kidney function studies (principal); N13.30 Unspecified hydronephrosis
CPT/HCPCS: 78708; A9562

== ENCOUNTER 2021-12-22 09:09 | Emergency (ER) | payer OTHER ==
[2021-12-22 09:43] LABS: Appearance,Urine Cloudy (Clear); Bacteria,Urine Few /hpf; Bilirubin,Urine Negative (Negative); Blood,Urine Moderate (Negative); Color,Urine Yellow; Glucose,Urine (UA) Negative (Negative); Ketones,Urine Negative (Negative); Leukocyte Esterase,Urine Large (Negative); Mucus,Urine Occasional /hpf; Nitrite,Urine Negative (Negative); PH, Urine 5.5 (5.0-8.0); Protein,Urine Negative (Negative); RBC,Urine 8 /hpf (0-5); Squamous Epithelial Cell,Urine 2 /hpf (0-4); Urobilinogen,Urine <2.0 mg/dL (<2.0); WBC,Urine 134 /hpf (0-5)
[2021-12-22] MEDS ORDERED: SODIUM CHLORIDE 0.9% 500 ML 500 ML IV STA (09:43)
[2021-12-22 10:16] LABS: ALT 25 U/L (4-49); AST 23 U/L (17-59); African American GFR (CKD) >90 (>60 ml/min/1.73 sqM); Albumin 3.7 g/dL (3.5-5.0); Alkaline Phosphatase 41 U/L (38-126); Amylase 112 U/L (30-110); Anion Gap 8 mmol/L; Blood Urea Nitrogen 13 mg/dL (9-20); Carbon Dioxide 26 mmol/L (22-30); Chloride 103 mmol/L (98-107); Glucose 94 mg/dL (74-99); Lipase 618 U/L (23-300); Non-African American GFR(CKD) >90 (>60 ml/min/1.73 sqM); Potassium 4.3 mmol/L (3.5-5.1); Sodium 137 mmol/L (137-145); Total Bilirubin 1.2 mg/dL (0.2-1.3); Total Protein 6.6 g/dL (6.3-8.2)
[2021-12-22 10:21] LABS: Basophils % (A) 0 %; Eosinophils # (A) 0.2 k/uL (0-0.7); Eosinophils % (A) 2 %; HCT 46.9 % (39.0-53.0); HGB 16.1 gm/dL (13.0-17.5); Lymphocytes # (A) 1.3 k/uL (1.0-4.8); Lymphocytes % (A) 11 %; MCHC 34.3 g/dL (31.0-37.0); MCV 87.5 fL (80.0-100.0); Mean Platelet Volume 6.9; Monocytes # (A) 0.4 k/uL (0-1.0); Monocytes % (A) 4 %; Neutrophils # (A) 9.9 k/uL (1.3-7.7); Neutrophils % (A) 83 %; Platelet Count 259 k/uL (150-450); RBC 5.36 m/uL (4.30-5.90); WBC 11.9 k/uL (3.8-10.6)
--- NOTE | 2021-12-22 10:45 | ED ---
Abdominal Pain HPI - General Chief Complaint: Abdominal Pain Stated Complaint: urinary infection Time Seen by Provider: 12/22/21 09:15 Source: patient, RN notes reviewed Mode of arrival: wheelchair Limitations: no limitations - History of Present Illness Initial Comments: 46-year-old male presents emergency Department chief complaint of possible urinary tract infection. Patient states she's been feeling some twinging into his abdomen. He states does not have much feeling as he is a paraplegic. Patient states that he is concerned as he is flying to [place] tomorrow he states that of recent past he had surgery of his ureter by a local urologist se condary to infection, scarring. He states he wants to make sure this is not the case as his nose some blood in his urine. He does admit that he straight cast daily. Patient states does not have a known fever or chills as a vomiting. No other complaints. - Related Data Home Medications Medication Instructions Recorded Confirmed Baclofen [Lioresal] 10 mg PO BID 02/13/21 07/30/21 Dextroamphetamine/Amphetamine 15 mg PO BID PRN 02/13/21 07/30/21 [Dextroamp-Amphetamin 15 mg Tab] Oxybutynin Chloride 5 mg PO DAILY 02/13/21 07/30/21 Testosterone Cypionate 200 mg IM MO 02/13/21 07/30/21 [Depo-Testosterone] Cephalexin [Keflex] 250 mg PO 1800 07/28/21 07/30/21 Multivitamins, Thera [Multivitamin 1 tab PO DAILY 07/28/21 07/28/21 (formulary)] Previous Rx's Medication Instructions Recorded Ketorolac [Toradol] 10 mg PO Q6HR PRN #15 tab 07/31/21 Levofloxacin [Levaquin] 500 mg PO DAILY #10 tab 12/22/21 Allergies Allergy/AdvReac Type Severity Reaction Status Date / Time Penicillins Allergy Unknown Verified 12/22/21 09:14 Childhood Review of Systems ROS Statement: Those systems with pertinent positive or pertinent negative responses have been documented in the HPI. ROS Other: All systems not noted in ROS Statement are negative. 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, C-7 quad 1992 History of Any Multi-Drug Resistant Organisms: MRSA, Other MDRO Date of last positivie culture/infection: 2016 MDRO Source:: MRSA ARM Past Surgical History: Orthopedic Surgery Additional Past Surgical History / Comment(s): orthopedic , Kidney surgey Past Anesthesia/Blood Transfusion Reactions: No Reported Reaction Past Psychological History: No Psychological Hx Reported Smoking Status: Never smoker Past Alcohol Use History: None Reported Past Drug Use History: Marijuana - Past Family History Mother Family Medical History: No Reported History General Exam Limitations: no limitations General appearance: alert, in no apparent distress Head exam: Present: atraumatic, normocephalic, normal inspection Eye exam: Present: normal appearance, PERRL, EOMI. Absent: scleral icterus, conjunctival injection, periorbital swelling ENT exam: Present: normal exam, normal oropharynx, mucous membranes moist Neck exam: Present: normal inspection, full ROM. Absent: tenderness, meningismus, lymphadenopathy Respiratory exam: Present: normal lung sounds bilaterally. Absent: respiratory distress, wheezes, rales, rhonchi, stridor Cardiovascular Exam: Present: regular rate, normal rhythm, normal heart sounds. Absent: systolic murmur, diastolic murmur, rubs, gallop, clicks GI/Abdominal exam: Present: soft, normal bowel sounds. Absent: distended, tenderness, guarding, rebound, rigid Course Vital Signs 12/22/21 09:11 Temperature 97.6 F Pulse Rate 76 Respiratory 20 Rate Blood Pressure 99/59 O2 Sat by Pulse 99 Oximetry Medical Decision Making - Medical Decision Making 46-year-old presented for possible UTI patient does have evidence of urinary tract infection. Patient did have computed tomography scan to rule out any ureteral issues as he had recent surgery. There is no acute changes. He did have mild elevated lipase but he has no associated symptoms or change on his CT. Patient will increase fluids a blister and oral antibiotics and return parameters were discussed. - Lab Data Result diagrams: 12/22/21 09:57 12/22/21 09:57 Lab Results 12/22/21 12/22/21 12/22/21 Range/Units 09: 09:57 09:57 WBC 11.9 H (3.8-10.6) k/uL RBC 5.36 (4.30-5.90) m/uL Hgb 16.1 (13.0-17.5) gm/dL Hct 46.9 (39.0-53.0) % MCV 87.5 (80.0-100.0) fL MCH 30.0 (25.0-35.0) pg MCHC 34.3 (31.0-37.0) g/dL RDW 14.0 (11.5-15.5) % Plt Count 259 (150-450) k/uL MPV 6.9 Neutrophils % 83 % Lymphocytes % 11 % Monocytes % 4 % Eosinophils % 2 % Basophils % 0 % Neutrophils # 9.9 H (1.3-7.7) k/uL Lymphocytes # 1.3 (1.0-4.8) k/uL Monocytes # 0.4 (0-1.0) k/uL Eosinophils # 0.2 (0-0.7) k/uL Basophils # 0.0 (0-0.2) k/uL Sodium 137 (137-145) mmol/L Potassium 4.3 (3.5-5.1) mmol/L Chloride 103 (98-107) mmol/L Carbon Dioxide 26 (22-30) mmol/L Anion Gap 8 mmol/L BUN 13 (9-20) mg/dL Creatinine 0.61 L (0.66-1.25) mg/dL Est GFR (CKD-EPI)AfAm >90 (>60 ml/min/1.73 sqM) Est GFR (CKD-EPI)NonAf >90 (>60 ml/min/1.73 sqM) Glucose 94 (74-99) mg/dL Plasma Lactic Acid [place] (0.7-2.0) mmol/L Calcium 9.0 (8.4-10.2) mg/dL Total Bilirubin 1.2 (0.2-1.3) mg/dL AST 23 (17-59) U/L ALT 25 (4-49) U/L Alkaline Phosphatase 41 (38-126) U/L Total Protein 6.6 (6.3-8.2) g/dL Albumin 3.7 (3.5-5.0) g/dL Amylase 112 H (30-110) U/L Lipase 618 H (23-300) U/L Urine Color Yellow Urine Appearance Cloudy (Clear) Urine pH 5.5 (5.0-8.0) Ur Specific [place] 1.020 (1.001-1.035) Urine Protein Negative (Negative) Urine Glucose (UA) Negative (Negative) Urine Ketones Negative (Negative) Urine Blood Moderate H (Negative) Urine Nitrite Negative (Negative) Urine Bilirubin Negative (Negative) Urine Urobilinogen <2.0 (<2.0) mg/dL Ur Leukocyte Esterase Large H (Negative) Urine RBC 8 H (0-5) /hpf Urine WBC 134 H (0-5) /hpf Ur Squamous Epith Cells 2 (0-4) /hpf Urine Bacteria Few H (None) /hpf Urine Mucus Occasional H (None) /hpf 12/22/21 Range/Units 09:57 WBC (3.8-10.6) k/uL RBC (4.30-5.90) m/uL Hgb (13.0-17.5) gm/dL Hct (39.0-53.0) % MCV (80.0-100.0) fL MCH (25.0-35.0) pg MCHC (31.0-37.0) g/dL RDW (11.5-15.5) % Plt Count (150-450) k/uL MPV Neutrophils % % Lymphocytes % % Monocytes % % Eosinophils % % Basophils % % Neutrophils # (1.3-7.7) k/uL Lymphocytes # (1.0-4.8) k/uL Monocytes # (0-1.0) k/uL Eosinophils # (0-0.7) k/uL Basophils # (0-0.2) k/uL Sodium (137-145) mmol/L Potassium (3.5-5.1) mmol/L Chloride (98-107) mmol/L Carbon Dioxide (22-30) mmol/L Anion Gap mmol/L BUN (9-20) mg/dL Creatinine (0.66-1.25) mg/dL Est GFR (CKD-EPI)AfAm (>60 ml/min/1.73 sqM) Est GFR (CKD-EPI)NonAf (>60 ml/min/1.73 sqM) Glucose (74-99) mg/dL Plasma Lactic Acid [place] 1.2 (0.7-2.0) mmol/L Calcium (8.4-10.2) mg/dL Total Bilirubin (0.2-1.3) mg/dL AST (17-59) U/L ALT (4-49) U/L Alkaline Phosphatase (38-126) U/L Total Protein (6.3-8.2) g/dL Albumin (3.5-5.0) g/dL Amylase (30-110) U/L Lipase (23-300) U/L Urine Color Urine Appearance (Clear) Urine pH (5.0-8.0) Ur Specific [place] (1.001-1.035) Urine Protein (Negative) Urine Glucose (UA) (Negative) Urine Ketones (Negative) Urine Blood (Negative) Urine Nitrite (Negative) Urine Bilirubin (Negative) Urine Urobilinogen (<2.0) mg/dL Ur Leukocyte Esterase (Negative) Urine RBC (0-5) /hpf Urine WBC (0-5) /hpf Ur Squamous Epith Cells (0-4) /hpf Urine Bacteria (None) /hpf Urine Mucus (None) /hpf Disposition Clinical Impression: UTI (urinary tract infection) Disposition: HOME SELF-CARE Condition: Stable Instructions (If sedation given, give patient instructions): Urinary Tract Infection in Men (ED) Additional Instructions: Please return to the Emergency Department if symptoms worsen or any other concerns. Prescriptions: Levofloxacin [Levaquin] 500 mg PO DAILY #10 tab Is patient prescribed a controlled substance at d/c from ED?: No Referrals: Jameson Lewis MD [Primary Care Provider] - 1-2 days Time of Disposition: 11:47
--- NOTE | 2021-12-22 11:32 | CT ---
EXAMINATION TYPE: CT abdomen pelvis w con DATE OF EXAM: 12/22/2021 COMPARISON: CT 06/10/2021 HISTORY: hx of kidney surgery, pain CT DLP: 744.8 mGycm Automated exposure control for dose reduction was used. TECHNIQUE: Helical acquisition of images from the lung bases through the pelvis have been completed. CONTRAST: Performed without Oral Contrast and with IV Contrast, patient injected with 100ML mL of Isovue 300. FINDINGS: LUNG BASES: No significant abnormality is appreciated. AORTA: No significant abnormality is appreciated. LIVER/GB: No significant abnormality is appreciated. PANCREAS: No significant abnormality is seen. SPLEEN: No significant abnormality is seen. ADRENALS: No significant abnormality is seen. KIDNEYS: The patulous appearance of the left renal collecting system is again seen REPRODUCTIVE ORGANS: No significant abnormality is seen BOWEL: Difficult to exclude mucosal thickening along the rectosigmoid colon, there is no bowel obstr uction. Fluid-filled loops of small bowel are present. There is no bowel obstruction. FREE AIR: No Free Air visible. ASCITES: None visible. PELVIC ADENOPATHY: None visualized. RETROPERITONEAL ADENOPATHY: No Retroperitoneal Adenopathy visible. URINARY BLADDER: Somewhat contracted, thickened wall of the urinary bladder may be due to lack of di stention, correlate to exclude cystitis. OSSEOUS STRUCTURES: Bilateral spondylolysis at L5 again noted. IMPRESSION: FINDINGS A SIMILAR TO PRIOR EXAM. NO ABNORMALITY EVIDENT TO ACCOUNT FOR PATIENT'S SYMPTOMS, ADDITIONA L FINDINGS ABOVE.
[2021-12-22] MEDS ORDERED: cefTRIAXone IN SWFI 1,000 MG/10 ML SYRINGE IVP STA (11:44)
[2021-12-22 12:08] VITALS: BP 100/56; PULSE 87; RESP 18; TEMP 98.9
== END 2021-12-22 12:07 | disposition home or self-care (01) ==
LOC: EC 09:09
DX: N39.0 Urinary tract infection, site not specified (principal); F12.90 Cannabis use, unspecified, uncomplicated; Z88.0 Allergy status to penicillin
CPT/HCPCS: 99284; 96374; 96361 ×2; 36415; 80053; 82150; 83605; 83690; 85025; 81001; 87086; 74177; J0696; Q9967

== ENCOUNTER → 2022-06-22 | Outpatient (CLI) | payer OTHER ==
[2022-06-22 11:21] LABS: African American GFR (CKD) >90 (>60 ml/min/1.73 sqM); Blood Urea Nitrogen 14 mg/dL (9-20); Non-African American GFR(CKD) >90 (>60 ml/min/1.73 sqM)
--- NOTE | 2022-06-22 12:48 | CT ---
EXAMINATION TYPE: CT urogram wo/w con DATE OF EXAM: 06/22/2022 COMPARISON: 12/22/2021. HISTORY: 47-year-old male N13.30, Left Hydronephrosis TECHNIQUE: Contiguous axial scanning of the abdomen and pelvis performed without and with IV Contrast , patient injected with 100 mL of Isovue 370. Delayed images through the kidneys and bladder were obt ained. Coronal/sagittal reconstructions performed. 3-D reconstructions generated on a dedicated tagga workstation. CT DLP: 1358.2 mGycm Automated exposure control for dose reduction was used. FINDINGS: Heart normal size without pericardial effusion. Some prominent subpleural nodular and strandy atelect asis is noted in the bilateral lower lungs. No pleural effusion. Tiny hiatal hernia. No focal liver lesion or biliary ductal dilatation. Portal venous system is patent. Gallbladder, adrenal glands, spleen, and pancreas within normal limits. No dilated small bowel, free fluid, free air. Prominent fluid-filled small bowel loops in the mid and left side of the abdomen with transient. Correlate for mild enteritis. No mesenteric or retroperitoneal lymphadenopathy. Appendix not clearly seen. No secondary findings of acute appendicitis in the right lower quadrant. T here is mild to moderate stool burden. Possible shouldering with annular soft tissue thickening at th e distal rectum, refer to axial series 11 image 80 and 81. Direct inspection can exclude mucosal lesi on/neoplasm. No pericolonic inflammatory change. There is ongoing severe left hydronephrosis with transition point at the ureteropelvic junction. On t he delayed most sequence, contrast is beginning to dependently accumulate within the dilated renal pe lvis. No nephrolithiasis. No suspicious renal mass is seen. No abnormal dilatation of the right renal collecting system. No suspicious filling defect seen within the right renal collecting system or along the course of the right ureter. Partially opacified bladder shows no gross abnormality on the delayed most scanned. Left-sided pelvic phleboliths. Prostate gland mildly enlarged at 4.8 cm wide. Otherwise, no abnormal fluid collection the pelvis or pelvic lymphadenopathy. Bones: Moderate degenerative change at the hips. There are bilateral L5 pars defects with trace grade 1 anterolisthesis at L5-S1. Mild anterior endplate spondylosis lower thoracic spine. IMPRESSION: 1. ONGOING SEVERE LEFT HYDRONEPHROSIS WITH TRANSITION POINT AT THE UPJ. FINDINGS SUGGEST UPJ OBSTRUCT ION/STRICTURE. 2. NO SUSPICIOUS RENAL MASS OR NEPHROLITHIASIS ON EITHER SIDE. NO ABNORMAL FILLING DEFECTS SEEN WITHI N THE RIGHT RENAL COLLECTING SYSTEM OR RIGHT URETER. THE LEFT URETER REMAINS NONOPACIFIED LIMITING SESSMENT. 3. POSSIBLE ANNULAR THICKENING AND SOFT TISSUE SHOULDERING AT THE DISTAL RECTUM. THIS MAY REPRESENT F OCAL PERISTALSIS. DIRECT VISUALIZATION RECOMMENDED TO EXCLUDE A MUCOSAL LESION/NEOPLASM. 4. MILD PROSTATOMEGALY AT 4.8 CM WIDE. 5. INCIDENTAL: TINY HIATAL HERNIA. 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
== END ==
LOC: RADCTMAIN 10:11
PROVIDERS: ATTEND Urology
DX: N13.30 Unspecified hydronephrosis (principal)
CPT/HCPCS: 82565; 84520; 74178; 36415; 74400; Q9967

== ENCOUNTER → 2022-08-27 | Outpatient (CLI) | payer OTHER ==
[2022-08-27 22:40] LABS: Appearance,Urine Cloudy (Clear); Bilirubin,Urine Negative (Negative); Blood,Urine Negative (Negative); Color,Urine Yellow (Yellow); Ketones,Urine Negative (Negative); Nitrite,Urine Negative (Negative); Specific Gravity,Urine 1.014 (1.001-1.030)
[2022-08-27 23:10] LABS: Bacteria,Urine 4+ /HPF (None Seen)
== END | disposition home or self-care (01) ==
LOC: LABWHC1 13:30
PROVIDERS: ATTEND Urology
DX: R39.0 Extravasation of urine (principal)
CPT/HCPCS: 81001; 87086

== ENCOUNTER → 2022-08-31 | Outpatient (CLI) | payer OTHER ==
[2022-08-31 14:28] LABS: HCT 51.5 % (39.6-50.0); HGB 17.6 g/dL (13.0-17.0); MCHC 34.2 g/dL (32.0-37.0); MCV 87.9 fL (80.0-97.0); Mean Platelet Volume 9.4 fL (9.5-12.2); NRBC Per 100 WBC 0 /100 WBCS (0.0-0.0); Platelet Count 223 X 10*3/uL (140-440); RBC 5.86 X 10*6/uL (4.40-5.60); RDW 13.3 % (11.5-14.5); WBC 4.46 X 10*3/uL (4.50-10.00)
[2022-08-31 15:58] LABS: African American GFR (CKD) 118.4 (60.0-200.0); Anion Gap 11.6 mmol/L (10.00-18.00); BUN/Creat Ratio 16.76 Ratio (12.00-20.00); Blood Urea Nitrogen 14.3 mg/dL (9.0-27.0); Carbon Dioxide 21.9 mmol/L (20.0-27.5); Non-African American GFR(CKD) 102.2 (60.0-200.0); Potassium 4.6 mmol/L (3.5-5.5)
[2022-08-31 17:48] LABS: Appearance,Urine Clear (Clear); Bilirubin,Urine Negative (Negative); Blood,Urine Negative (Negative); Color,Urine Yellow (Yellow); Ketones,Urine Negative (Negative); Nitrite,Urine Negative (Negative); Specific Gravity,Urine 1.014 (1.001-1.030)
[2022-08-31 17:53] LABS: Bacteria,Urine None Seen /HPF (None Seen)
== END | disposition home or self-care (01) ==
LOC: LABPAT 09:55
PROVIDERS: ATTEND Urology
DX: Z01.812 Encounter for preprocedural laboratory examination (principal); N13.30 Unspecified hydronephrosis
CPT/HCPCS: 36415; 80048; 81001; 85027; 87086

== ENCOUNTER 2022-09-07 07:35 | Day surgery (SDC) | payer OTHER ==
--- NOTE | 2022-09-01 11:43 | P.HPIHPCON ---
History of Present Illness H&P Date: 09/01/22 Chief Complaint: Left-sided hydronephrosis This is a 47-year-old male with history of left UPJ obstruction. Underwent a robotic left-sided pyeloplasty in July 2021. At that time patient had significant scarring at the UPJ secondary to recurrent bouts of pyelonephritis. Postoperative imaging showed persistent obstruction.. Discussed with him given this finding recommend proceeding with ureteroscopy, with balloon dilation and stent insertion. Risk of surgery was discussed with him. Discussed risks which include but not limited to bleeding, infection, injury to the ureter. Discussed also potential of persistent obstruction even with the balloon dilation. He understood all the risk and agreed to proceed Consent for Procedure: I have explained the operation/procedure to the patient, including the risks, benefits, side effects, alternative therapies (including not receiving the proposed treatment or service), the likelihood of the patient achieving his/her goals, and potential recuperation problems for the procedure/sedation/analgesia, as well as any blood products, if indicated. I also explained to the patient the risks, benefits and side effects of the alternatives, as well as the risks related to not receiving the proposed procedure, care, treatment, or services. 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, C-7 quad 1992 History of Any Multi-Drug Resistant Organisms: MRSA, Other MDRO Date of last positivie culture/infection: 2015 MDRO Source:: MRSA ARM Past Surgical History: Orthopedic Surgery Additional Past Surgical History / Comment(s): orthopedic , Kidney surgey Past Anesthesia/Blood Transfusion Reactions: No Reported Reaction Past Psychological History: No Psychological Hx Reported Smoking Status: Never smoker Past Alcohol Use History: None Reported Past Drug Use History: Marijuana - Past Family History Mother Family Medical History: No Reported History Medications and Allergies Home Medications Medication Instructions Recorded Confirmed Type Baclofen [Lioresal] 10 mg PO BID 02/13/21 07/30/21 History Dextroamphetamine/Amphetamine 15 mg PO BID PRN 02/13/21 07/30/21 History [Dextroamp-Amphetamin 15 mg Tab] Oxybutynin Chloride 5 mg PO DAILY 02/13/21 07/30/21 History Testosterone Cypionate 200 mg IM MO 02/13/21 07/30/21 History [Depo-Testosterone] Cephalexin [Keflex] 250 mg PO 1800 07/28/21 07/30/21 History Multivitamins, Thera [Multivitamin 1 tab PO DAILY 07/28/21 07/28/21 History (formulary)] Ketorolac [Toradol] 10 mg PO Q6HR PRN #15 tab 07/31/21 Rx Levofloxacin [Levaquin] 500 mg PO DAILY #10 tab 12/22/21 Rx Allergies Allergy/AdvReac Type Severity Reaction Status Date / Time Penicillins Allergy Unknown Verified 12/22/21 09:14 Childhood Surgical - Exam - General no distress, no pain - Eyes normal ocular movement, no pale - ENT normal nares, normal mucosa - Respiratory normal expansion, normal respiratory effort - Abdomen Abdomen: soft Assessment and Plan Assessment: OR for left ureteroscopy, ureteral balloon dilation, and stent insertion
[2022-09-02 15:12] VITALS: BMI 23.7
[~2022-09-07 07:35] MED LIST changes: +CIPROFLOXACIN/DEXTROSE PMX 400 MG in DEXTROSE/WATER 1 200ML.BAG IVPB PRN; +DEXAMETHASONE SOD PHOSPHATE 4 MG/ML 1 ML VIAL IV ONE; -FUROSEMIDE 10 MG/ML 2 ML VIAL IV ONE; +GENTAMICIN 120 MG in SODIUM CHLORIDE 0.9% 100 ML IVPB PRN; +HYDROmorphone 0.5 MG/0.5 ML SYRINGE IVP PRN; +LACTATED RINGERS 1,000 ML IV SCH; +LIDOCAINE 1% (10MG/ML) FOR IV START INTRADERMA PRN; +MIDAZOLAM 2 MG/2 ML VIAL IV PRN; +ONDANSETRON 4 MG/2 ML VIAL IVP ONE; +Pre Op ABX Message 1 EACH MISC MISCELLANE ONE
--- NOTE | 2022-09-07 08:24 | XR ---
EXAMINATION TYPE: XR KUB DATE OF EXAM: 09/07/2022 Comparison: 02/14/2021 Clinical History: 47-year-old male preop left kidney stone, to be done prior to cystoscopy lithotrips y 09/07/22 Findings: Nonobstructive bowel gas pattern. No discrete suspicious calcifications radiographically apparent. Mu ltiple phleboliths within the left side of the pelvis. Mild overall stone burden. Impression: Mild overall stool burden. Difficult to identify a discrete left renal calculus by radiograph. Multip le left-sided pelvic phleboliths.
[2022-09-07] MEDS ORDERED: ePHEDrine 50 MG/ML 1 ML VIAL ONE (09:46)
[2022-09-07] MEDS ORDERED: MIDAZOLAM 2 MG/2 ML VIAL ONE (09:46)
[2022-09-07] MEDS ORDERED: LIDOCAINE 2% INJ 20 MG/ML (2 ML VIAL) ONE (09:46)
[2022-09-07] MEDS ORDERED: ROCURONIUM 10 MG/ML (5 ML VIAL) IV ONE (09:46)
[2022-09-07] MEDS ORDERED: fentaNYL (PF) 50 MCG/ML 2 ML AMP ONE (09:46)
[2022-09-07] MEDS ORDERED: SUGAMMADEX SODIUM 200 MG/2 ML SDV IV ONE (09:46)
[2022-09-07] MEDS ORDERED: PROPOFOL 10 MG/ML 20 ML VIAL IV ONE (09:46)
[2022-09-07] MEDS ORDERED: IOPAMIDOL-300 50ML BTL MISCELLANE ONE ×2 (10:11)
--- NOTE | 2022-09-07 11:07 | P.OP ---
Date of Procedure: 09/07/22 Preoperative Diagnosis: Left hydronephrosis Postoperative Diagnosis: Same Procedure(s) Performed: Cystoscopy, left retrograde pyelogram and ureteroscopy Implants: none Anesthesia: SHERICEA Surgeon: Nathanael Walters Estimated Blood Loss (ml): 1 Pathology: none sent Condition: stable Disposition: PACU Indications for Procedure: This is a 47-year-old male with history of left UPJ obstruction. Underwent a robotic left-sided pyeloplasty in July 2021. At that time patient had significant scarring at the UPJ secondary to recurrent bouts of pyelonephritis. Postoperative imaging showed persistent obstruction.. Discussed with him given this finding recommend proceeding with ureteroscopy, with balloon dilation and stent insertion. Risk of surgery was discussed with him. Discussed risks which include but not limited to bleeding, infection, injury to the ureter. Discussed also potential of persistent obstruction even with the balloon dilation. He understood all the risk and agreed to proceed Operative Findings: No evidence of UPJ obstruction on retrograde pyelogram, or on ureteroscopy. Significant dilation of the collecting system, but no evidence of obstruction Description of Procedure: Patient brought to the operating room, general anesthesia was induced. He was prepped and draped in sterile fashion and placed in dorsal lithotomy position. Cystoscopy fitted with a 21-Romanian sheath was inserted per urethra, cystoscopy was performed which showed no abnormality within the bladder. Attention was then carried to the left ureteral orifice which was intubated with a 6-Romanian open-ended catheter, retrograde pyelogram was performed which showed no filling defect along the course of the ureter, there was no evidence of UPJ narrowing. There was significant dilation of the collecting system but no evidence of a transition point of obstruction. At this time a wire was advanced through the catheter and the catheter was removed with the wire in place. Next the flexible ureteroscope was passed over the wire, I was able to pass the scope without any difficulty through the UPJ and ureter. Complete renoscopy was performed which showed no abnormality within the kidney. Patient UPJ was dilated and there was no evidence of obstruction and I was able to pass the scope in and out without any difficulty. Given the lack of obstruction decision was made to proceed withot stent or balloon dilation as the UPJ is was not obstructed or narrowed. At this time pullback ureteroscopy was performed showed no injury to the ureter or any evidence of ureteral injury. The bladder was emptied at the end of the case. Patient tolerated the procedure well was taken to recovery in stable condition. At this time given the lack of obstruction on ureteroscopy, the delayed drainage is most likely secondary to significantly dilated collecting system, rather than a obstruction.
[2022-09-07 11:08] VITALS: TEMP 97.4
[2022-09-07 11:13] VITALS: RESP 16
--- NOTE | 2022-09-07 11:49 | FL ---
EXAMINATION TYPE: FL urography retrograde DATE OF EXAM: 09/07/2022 FLUOROSCOPY Fluoroscopy time of (not provided) was used during urologic intervention for left-sided hydronephrosi s. 4 image/s document/s the procedure.
[2022-09-07 12:09] VITALS: BP 133/80; PULSE 56
== END 2022-09-07 12:14 | disposition home or self-care (01) ==
LOC: OR 07:35
PROVIDERS: ATTEND Urology
DX: N13.30 Unspecified hydronephrosis (principal); N12 Tubulo-interstitial nephritis, not specified as acute or chronic; Z88.0 Allergy status to penicillin; Z79.899 Other long term (current) drug therapy; Z98.890 Other specified postprocedural states
CPT/HCPCS: 52351; 74420; 74018; C1758; C1769; J2250; J1100; J2405; J3010; J0744; J2704; Q9967; J2001

== ENCOUNTER 2024-08-10 07:44 | Emergency (ER) | payer OTHER ==
--- NOTE | 2024-08-10 08:12 | ED ---
General Adult HPI - General Chief complaint: Urogenital Stated complaint: Urogenital Time Seen by Provider: 08/10/24 07:53 Source: patient, RN notes reviewed Mode of arrival: wheelchair Limitations: physical limitation - History of Present Illness Initial comments: 49-year-old male presents to the emergency department for evaluation of bodyaches and chills. Patient has a history of spinal cord injury and paraplegia. Patient reports that last night he started experiencing bodyaches and chills. He reports that he does not experience any pain below the nipple and therefore is unsure of any other symptoms. He states that when he has these symptoms it is typically indicative of a urinary tract infection. He reports that he straight caths at home. He notes decreased urine output today but has been hydrating as usual. - Related Data Home Medications Medication Instructions Recorded Confirmed Baclofen [Lioresal] 10 mg PO BID 02/13/21 09/02/22 Oxybutynin Chloride 5 mg PO DAILY 02/13/21 09/02/22 Previous Rx's Medication Instructions Recorded Ciprofloxacin HCl [Cipro] 250 mg PO Q12HR #10 tablet 09/07/22 Ciprofloxacin [Cipro Susp] 500 mg PO BID #20 ml 08/10/24 Allergies Allergy/AdvReac Type Severity Reaction Status Date / Time Penicillins Allergy Unknown Verified 08/10/24 07:46 Childhood Review of Systems ROS Statement: Those systems with pertinent positive or pertinent negative responses have been documented in the HPI. ROS Other: All systems not noted in ROS Statement are negative. 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, C-7 spinal cord [id number] from nipple line down. Kidney stones, septic renal calcul i. History of Any Multi-Drug Resistant Organisms: MRSA, Other MDRO Date of last positivie culture/infection: 2015 MDRO Source:: MRSA ARM-possibly Past Surgical History: Back Surgery, Orthopedic Surgery Additional Past Surgical History / Comment(s): Kidney surgery, kidney stone removal, elbow surg., elizabeth. shoulder surg. Past Anesthesia/Blood Transfusion Reactions: No Reported Reaction Past Psychological History: No Psychological Hx Reported Smoking Status: Former smoker Past Alcohol Use History: None Reported Past Drug Use History: Marijuana - Past Family History Mother Family Medical History: No Reported History General Exam Limitations: physical limitation General appearance: alert, in no apparent distress Head exam: Present: atraumatic, normocephalic, normal inspection Eye exam: Present: normal appearance, PERRL, EOMI. Absent: scleral icterus, conjunctival injection, periorbital swelling ENT exam: Present: normal exam, mucous membranes moist Neck exam: Present: normal inspection. Absent: tenderness, meningismus, lymphadenopathy Respiratory exam: Present: normal lung sounds bilaterally. Absent: respiratory distress, wheezes, rales, rhonchi, stridor Cardiovascular Exam: Present: regular rate, normal rhythm, normal heart sounds. Absent: systolic murmur, diastolic murmur, rubs, gallop, clicks GI/Abdominal exam: Present: soft, normal bowel sounds. Absent: distended, tenderness, guarding, rebound, rigid Extremities exam: Present: normal inspection, full ROM, normal capillary refill. Absent: tenderness, pedal edema, joint swelling, calf tenderness Back exam: Present: normal inspection Neurological exam: Present: alert, oriented X3 Psychiatric exam: Present: normal affect, normal mood Skin exam: Present: warm, dry, intact, normal color. Absent: rash Course Vital Signs 08/10/24 08/10/24 07:47 10:20 Temperature 98.2 F 99.7 F H Pulse Rate 80 79 Respiratory 18 16 Rate Blood Pressure 114/57 127/70 O2 Sat by Pulse 99 96 Oximetry Medical Decision Making - Medical Decision Making Was pt. sent in by a medical professional or institution (CLAIRE Gross, DENTAL OFFICE ASSISTANT, urgent care, hospital, or fci...) When possible be specific @ -[No] Did you speak to anyone other than the patient for history (EMS, parent, family, police, friend...)? What history was obtained from this source @ -[No] Did you review nursing and triage notes (agree or disagree)? Why? @ -[I reviewed and agree with nursing and triage notes] Were old charts reviewed (outside hosp., previous admission, EMS record, old EKG, old radiological studies, urgent care reports/EKG's, fci records)? Report findings @ -[No old charts were reviewed] Differential Diagnosis (chest pain, altered mental status, abdominal pain women, abdominal pain men, vaginal bleeding, weakness, fever, dyspnea, syncope, headache, dizziness, GI bleed, back pain, seizure, CVA, palpatations, mental health, musculoskeletal)? @ -[not applicable] EKG interpreted by me (3pts min.). @ -[As above] X-rays interpreted by me (1pt min.). @ -[None done] CT interpreted by me (1pt min.). @ -[None done] U/S interpreted by me (1pt. min.). @ -[None done] What testing was considered but not performed or refused? (CT, X-rays, U/S, labs)? Why? @ -[None] What meds were considered but not given or refused? Why? @ -[None] Did you discuss the management of the patient with other professionals (professionals i.e. DrFlorentino, PA, DENTAL OFFICE ASSISTANT, lab, RT, psych nurse, social service worker, community health consultant, teacher, identification officer, spring encaser)? Give summary @ -[No] Was smoking cessation discussed for >3mins.? @ -[No] Was critical care preformed (if so, how long)? @ -[No] Were there social determinants of health that impacted care today? How? (Homelessness, low income, unemployed, alcoholism, drug addiction, transportation, low edu. Level, literacy, decrease access to med. care, long-term, rehab)? @ -[No] Was there de-escalation of care discussed even if they declined (Discuss DNR or withdrawal of care, Hospice)? DNR status @ -[No] What co-morbidities impacted this encounter? (DM, HTN, Smoking, COPD, CAD, Cancer, CVA, ARF, Chemo, Hep., AIDS, mental health diagnosis, sleep apnea, morbid obesity)? @ -[None] Was patient admitted / discharged? Hospital course, mention meds given and route, prescriptions, significant lab abnormalities, going to OR and other p ertinent info. @ -[hospital course] Undiagnosed new problem with uncertain prognosis? @ -[No] Drug Therapy requiring intensive monitoring for toxicity (Heparin, Nitro, Insulin, Cardizem)? @ -[No] Were any procedures done? @ -[No] Diagnosis/symptom? @ -[default] Acute, or Chronic, or Acute on Chronic? @ -[default] Uncomplicated (without systemic symptoms) or Complicated (systemic symptoms)? @ -[default] Side effects of treatment? @ -[No] Exacerbation, Progression, or Severe Exacerbation? @ -[No] Poses a threat to life or bodily function? How? (Chest pain, [place], [place], pneumonia, PE, COPD, DKA, ARF, appy, cholecystitis, CVA, Diverticulitis, Homicidal, Suicidal, threat to staff... and all critical care pts) @ -[No] - Lab Data Result diagrams: 08/10/24 08:14 08/10/24 08:14 Lab Results 08/10/24 08/10/24 08/10/24 Range/Units 08:14 08:14 08:14 WBC 12.6 H (3.8-10.6) k/uL RBC 5.09 (4.30-5.90) m/uL Hgb 15.3 (13.0-17.5) gm/dL Hct 45.9 (39.0-53.0) % MCV 90.1 (80.0-100.0) fL MCH 30.1 (25.0-35.0) pg MCHC 33.4 (31.0-37.0) g/dL RDW 13.3 (11.5-15.5) % Plt Count 208 (150-450) k/uL MPV 6.6 Neutrophils % 93 % Lymphocytes % 3 % Monocytes % 2 % Eosinophils % 1 % Basophils % 0 % Neutrophils # 11.8 H (1.3-7.7) k/uL Lymphocytes # 0.4 L (1.0-4.8) k/uL Monocytes # 0.3 (0-1.0) k/uL Eosinophils # 0.1 (0-0.7) k/uL Basophils # 0.0 (0-0.2) k/uL Sodium 134 L (137-145) mmol/L Potassium 4.5 (3.5-5.1) mmol/L Chloride 102 (98-107) mmol/L Carbon Dioxide 24 (22-30) mmol/L Anion Gap 8 mmol/L BUN 21 H (9-20) mg/dL Creatinine 0.72 (0.66-1.25) mg/dL Est GFR (CKD-EPI)AfAm >90 (>60 ml/min/1.73 sqM) Est GFR (CKD-EPI)NonAf >90 (>60 ml/min/1.73 sqM) Glucose 114 H (74-99) mg/dL Plasma Lactic Acid Flaquito (0.7-2.0) mmol/L Calcium 8.9 (8.4-10.2) mg/dL Total Bilirubin 1.3 (0.2-1.3) mg/dL AST 31 (17-59) U/L ALT 35 (4-49) U/L Alkaline Phosphatase 28 L (38-126) U/L Total Protein 6.2 L (6.3-8.2) g/dL Albumin 3.9 (3.5-5.0) g/dL Urine Color Yellow Urine Appearance Clear (Clear) Urine pH 6.0 (5.0-8.0) Ur Specific Martin 1.033 (1.001-1.035) Urine Protein Trace H (Negative) Urine Glucose (UA) Negative (Negative) Urine Ketones Negative (Negative) Urine Blood Negative (Negative) Urine Nitrite Negative (Negative) Urine Bilirubin Negative (Negative) Urine Urobilinogen 3.0 (<2.0) mg/dL Ur Leukocyte Esterase Moderate H (Negative) Urine RBC 2 (0-5) /hpf Urine WBC 31 H (0-5) /hpf Ur Squamous Epith Cells 1 (0-4) /hpf Hyaline Casts 4 H (0-2) /lpf Urine Mucus Many H (None) /hpf Influenza Type A (PCR) (Not Detectd) Influenza Type B (PCR) (Not Detectd) RSV (PCR) (Not Detectd) SARS-CoV-2 (PCR) (Not Detectd) 08/10/24 08/10/24 Range/Units 08:14 09:34 WBC (3.8-10.6) k/uL RBC (4.30-5.90) m/uL Hgb (13.0-17.5) gm/dL Hct (39.0-53.0) % MCV (80.0-100.0) fL MCH (25.0-35.0) pg MCHC (31.0-37.0) g/dL RDW (11.5-15.5) % Plt Count (150-450) k/uL MPV Neutrophils % % Lymphocytes % % Monocytes % % Eosinophils % % Basophils % % Neutrophils # (1.3-7.7) k/uL Lymphocytes # (1.0-4.8) k/uL Monocytes # (0-1.0) k/uL Eosinophils # (0-0.7) k/uL Basophils # (0-0.2) k/uL Sodium (137-145) mmol/L Potassium (3.5-5.1) mmol/L Chloride (98-107) mmol/L Carbon Dioxide (22-30) mmol/L Anion Gap mmol/L BUN (9-20) mg/dL Creatinine (0.66-1.25) mg/dL Est GFR (CKD-EPI)AfAm (>60 ml/min/1.73 sqM) Est GFR (CKD-EPI)NonAf (>60 ml/min/1.73 sqM) Glucose (74-99) mg/dL Plasma Lactic Acid Flaquito 1.8 (0.7-2.0) mmol/L Calcium (8.4-10.2) mg/dL Total Bilirubin (0.2-1.3) mg/dL AST (17-59) U/L ALT (4-49) U/L Alkaline Phosphatase (38-126) U/L Total Protein (6.3-8.2) g/dL Albumin (3.5-5.0) g/dL Urine Color Urine Appearance (Clear) Urine pH (5.0-8.0) Ur Specific Martin (1.001-1.035) Urine Protein (Negative) Urine Glucose (UA) (Negative) Urine Ketones (Negative) Urine Blood (Negative) Urine Nitrite (Negative) Urine Bilirubin (Negative) Urine Urobilinogen (<2.0) mg/dL Ur Leukocyte Esterase (Negative) Urine RBC (0-5) /hpf Urine WBC (0-5) /hpf Ur Squamous Epith Cells (0-4) /hpf Hyaline Casts (0-2) /lpf Urine Mucus (None) /hpf Influenza Type A (PCR) Not Detected (Not Detectd) Influenza Type B (PCR) Not Detected (Not Detectd) RSV (PCR) Not Detected (Not Detectd) SARS-CoV-2 (PCR) Not Detected (Not Detectd) Disposition Clinical Impression: UTI (urinary tract infection) Disposition: HOME SELF-CARE Condition: Stable Instructions (If sedation given, give patient instructions): Urinary Tract Infection in Men (ED) Additional Instructions: Please follow up with your primary care provider. Return to the emergency department for new or worsening symptoms. Prescriptions: Ciprofloxacin [Cipro Susp] 500 mg PO BID #20 ml Is patient prescribed a controlled substance at d/c from ED?: No Referrals: Jameson Lewis MD [Primary Care Provider] - 1-2 days
[2024-08-10 08:46] LABS: Basophils % (A) 0 %; Eosinophils # (A) 0.1 k/uL (0-0.7); Eosinophils % (A) 1 %; HCT 45.9 % (39.0-53.0); HGB 15.3 gm/dL (13.0-17.5); Lymphocytes # (A) 0.4 k/uL (1.0-4.8); Lymphocytes % (A) 3 %; MCH 30.1 pg (25.0-35.0); MCHC 33.4 g/dL (31.0-37.0); MCV 90.1 fL (80.0-100.0); Mean Platelet Volume 6.6; Monocytes # (A) 0.3 k/uL (0-1.0); Monocytes % (A) 2 %; Neutrophils # (A) 11.8 k/uL (1.3-7.7); Neutrophils % (A) 93 %; Platelet Count 208 k/uL (150-450); RBC 5.09 m/uL (4.30-5.90); RDW 13.3 % (11.5-15.5); WBC 12.6 k/uL (3.8-10.6)
[2024-08-10 08:58] LABS: ALT 35 U/L (4-49); African American GFR (CKD) >90 (>60 ml/min/1.73 sqM); Albumin 3.9 g/dL (3.5-5.0); Anion Gap 8 mmol/L; Blood Urea Nitrogen 21 mg/dL (9-20); Calcium 8.9 mg/dL (8.4-10.2); Carbon Dioxide 24 mmol/L (22-30); Chloride 102 mmol/L (98-107); Glucose 114 mg/dL (74-99); Non-African American GFR(CKD) >90 (>60 ml/min/1.73 sqM); Sodium 134 mmol/L (137-145); Total Bilirubin 1.3 mg/dL (0.2-1.3); Total Protein 6.2 g/dL (6.3-8.2)
[2024-08-10 08:59] LABS: AST 31 U/L (17-59); Alkaline Phosphatase 28 U/L (38-126); Appearance,Urine Clear (Clear); Bilirubin,Urine Negative (Negative); Blood,Urine Negative (Negative); Color,Urine Yellow; Glucose,Urine (UA) Negative (Negative); Hyaline Casts,Urine 4 /lpf (0-2); Ketones,Urine Negative (Negative); Leukocyte Esterase,Urine Moderate (Negative); Mucus,Urine Many /hpf; Nitrite,Urine Negative (Negative); Potassium 4.5 mmol/L (3.5-5.1); Protein,Urine Trace (Negative); RBC,Urine 2 /hpf (0-5); Specific Gravity,Urine 1.033 (1.001-1.035); Squamous Epithelial Cell,Urine 1 /hpf (0-4); WBC,Urine 31 /hpf (0-5)
--- NOTE | 2024-08-10 09:30 | XR ---
EXAMINATION TYPE: XR chest 2V DATE OF EXAM: 08/10/2024 8:47 AM COMPARISON: None CLINICAL INDICATION: Male, 49 years old with history of fever, chills; [facility] TECHNIQUE: XR chest 2V Frontal and lateral views of the chest. FINDINGS: Lungs/Pleura: There is no evidence of pleural effusion, focal consolidation, or pneumothorax. Left l ower lung calcified pulmonary nodule. Pulmonary vascularity: Unremarkable. Heart/mediastinum: Cardiomediastinal silhouette is unremarkable. Musculoskeletal: No acute osseous pathology. Other findings: Metallic density in the upper neck. Lines/Tubes: IMPRESSION: 1. No acute cardiopulmonary disease/process. 2. Calcified left lower lung pulmonary nodule. [facility], , 08/10/2024 9:28 AM
[2024-08-10 10:21] VITALS: RESP 16
[2024-08-10] MEDS: cefTRIAXone IN SWFI 1,000 MG/10 ML SYRINGE IVP STA (11:01)
[2024-08-10 11:22] VITALS: BP 124/79; PULSE 78; TEMP 98.9
== END 2024-08-10 11:22 | disposition home or self-care (01) ==
LOC: EC 07:44
DX: N39.0 Urinary tract infection, site not specified (principal); Z88.0 Allergy status to penicillin; Z87.891 Personal history of nicotine dependence
CPT/HCPCS: 36415; 80053; 83605; 85025; 81001; 87086; 87636; 71046; 99284; L4350; J0696

== ENCOUNTER 2024-08-11 16:25 | Emergency (ER) | payer OTHER ==
--- NOTE | 2024-08-11 17:29 | ED ---
Skin/Abscess/FB HPI - General Chief complaint: Skin/Abscess/Foreign Body Stated complaint: R Leg Sweeling Time Seen by Provider: 08/11/24 16:38 Source: patient, family, RN notes reviewed Mode of arrival: wheelchair Limitations: physical limitation (Paraplegia) - History of Present Illness Initial comments: This is a 49-year-old male with history of paraplegia presenting with right lower extremity erythema, edema and warmth x 2 days. Patient was seen in this ER yesterday for UTI, receiving Rocephin and ciprofloxacin prior to discharge. Patient denies symptoms elsewhere on body, throat swelling, diffuse rash, dyspnea/SOB. Patient denies recent known trauma, denies pain due to paraplegia. Denies use of blood thinners or history of DVT. Denies fever, chills, chest pain, dyspnea, abdominal pain, N/V/D. MD complaint: discoloration Onset/Timin -: days(s) Location: RLE Associated symptoms: denies other symptoms - Related Data Home Medications Medication Instructions Recorded Confirmed Baclofen [Lioresal] 10 mg PO BID 02/13/21 09/02/22 Oxybutynin Chloride 5 mg PO DAILY 02/13/21 09/02/22 Previous Rx's Medication Instructions Recorded Ciprofloxacin HCl [Cipro] 250 mg PO Q12HR #10 tablet 09/07/22 clindamycin HCL 300 mg PO QID #40 cap 08/11/24 Allergies Allergy/AdvReac Type Severity Reaction Status Date / Time Penicillins Allergy Unknown Verified 08/11/24 16:38 Childhood Review of Systems ROS Statement: Those systems with pertinent positive or pertinent negative responses have been documented in the HPI. ROS Other: All systems not noted in ROS Statement are negative. 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 Kidney stones, septic renal calculi. History of Any Multi-Drug Resistant Organisms: MRSA, Other MDRO Date of last positivie culture/infection: 2015 MDRO Source:: MRSA ARM-possibly Past Surgical History: Back Surgery, Orthopedic Surgery Additional Past Surgical History / Comment(s): Kidney surgery, kidney stone removal, elbow surg., elizabeth. shoulder surg. Past Anesthesia/Blood Transfusion Reactions: No Reported Reaction Past Psychological History: No Psychological Hx Reported Smoking Status: Former smoker Past Alcohol Use History: None Reported Past Drug Use History: Marijuana - Past Family History Mother Family Medical History: No Reported History General Exam Limitations: physical limitation General appearance: alert, in no apparent distress Head exam: Present: atraumatic, normocephalic, normal inspection Eye exam: Present: normal appearance, PERRL, EOMI. Absent: scleral icterus, conjunctival injection, periorbital swelling ENT exam: Present: normal exam, mucous membranes moist Neck exam: Present: normal inspection. Absent: tenderness, meningismus, lymphadenopathy Respiratory exam: Present: normal lung sounds bilaterally. Absent: respiratory distress, wheezes, rales, rhonchi, stridor Cardiovascular Exam: Present: regular rate, normal rhythm, normal heart sounds. Absent: systolic murmur, diastolic murmur, rubs, gallop, clicks GI/Abdominal exam: Present: soft, normal bowel sounds. Absent: distended, tenderness, guarding, rebound, rigid Extremities exam: Present: normal capillary refill, pedal edema (RLE edema from foot to mid linder 3+ with associated erythema and warmth. Knee region spared with similar right medial thigh erythema, edema and warmth with superficial 2 cm darkened area near groin on superior, medial thigh). Absent: tenderness, joint swelling, calf tenderness Back exam: Present: normal inspection Neurological exam: Present: alert, oriented X3, CN II-XII intact Psychiatric exam: Present: normal affect, normal mood Skin exam: Present: warm, dry, intact, normal color. Absent: rash Course Vital Signs 08/11/24 08/11/24 16:38 18:04 Temperature 99.5 F 99.7 F H Pulse Rate 76 78 Respiratory 18 19 Rate Blood Pressure 130/76 126/70 O2 Sat by Pulse 99 96 Oximetry Medical Decision Making - Medical Decision Making Was pt. sent in by a medical professional or institution (, PA, PASSENGER REPRESENTATIVE, urgent care, hospital, or penitentiary...) When possible be specific @ -No Did you speak to anyone other than the patient for history (EMS, parent, family, police, friend...)? What history was obtained from this source @ -No Did you review nursing and triage notes (agree or disagree)? Why? @ -I reviewed and agree with nursing and triage notes Were old charts reviewed (outside hosp., previous admission, EMS record, old EKG, old radiological studies, urgent care reports/EKG's, penitentiary records)? Report findings @ -No old charts were reviewed Differential Diagnosis (chest pain, altered mental status, abdominal pain women, abdominal pain men, vaginal bleeding, weakness, fever, dyspnea, syncope, headache, dizziness, GI bleed, back pain, seizure, CVA, palpatations, mental health, musculoskeletal)? @ -DVT, cellulitis, arterial occlusion, PAD, PVD, MRSA, thrombophlebitis, reaction to medication, this is not an exhaustive list EKG interpreted by me (3pts min.). @ -Not done X-rays interpreted by me (1pt min.). @ -None done CT interpreted by me (1pt min.). @ -None done U/S interpreted by me (1pt. min.). @ -Lower extremity Doppler ultrasound reveals no DVT What testing was considered but not performed or refused? (CT, X-rays, U/S, labs)? Why? @ -None What meds were considered but not given or refused? Why? @ -None Did you discuss the management of the patient with other professionals (professionals i.e. , PA, PASSENGER REPRESENTATIVE, lab, RT, psych nurse, social services technician, news agent, teacher, field artillery officer, continuous pillowcase cutter)? Give summary @ -No Was smoking cessation discussed for >3mins.? @ -No Was critical care preformed (if so, how long)? @ -No Were there social determinants of health that impacted care today? How? (Homelessness, low income, unemployed, alcoholism, drug addiction, transportation, low edu. Level, literacy, decrease access to med. care, senior living, rehab)? @ -No Was there de-escalation of care discussed even if they declined (Discuss DNR or withdrawal of care, Hospice)? DNR status @ -No What co-morbidities impacted this encounter? (DM, HTN, Smoking, COPD, CAD, Cancer, CVA, ARF, Chemo, Hep., AIDS, mental health diagnosis, sleep apnea, morbid obesity)? @ -None Was patient admitted / discharged? Hospital course, mention meds given and route, prescriptions, significant lab abnormalities, going to OR and other pertinent info. @ -Negative DVT on lower extremity Doppler ultrasound. Patient given initial dose of clindamycin in ER with remainder sent to patient's pharmacy. Advised once daily probiotic with breakfast for the next several weeks while taking antibiotics Undiagnosed new problem with uncertain prognosis? @ -No Drug Therapy requiring intensive monitoring for toxicity (Heparin, Nitro, Insulin, Cardizem)? @ -No Were any procedures done? @ -No Diagnosis/symptom? @ -Cellulitis Acute, or Chronic, or Acute on Chronic? @ -Acute Uncomplicated (without systemic symptoms) or Complicated (systemic symptoms)? @ -Uncomplicated Side effects of treatment? @ -No Exacerbation, Progression, or Severe Exacerbation? @ -No Poses a threat to life or bodily function? How? (Chest pain, [place], [place], pneumonia, PE, COPD, DKA, ARF, appy, cholecystitis, CVA, Diverticulitis, Homicidal, Suicidal, threat to staff... and all critical care pts) @ -No Disposition Clinical Impression: Cellulitis of leg, right Disposition: HOME SELF-CARE Condition: Good Instructions (If sedation given, give patient instructions): Cellulitis (ED) Prescriptions: clindamycin HCL 300 mg PO QID #40 cap Is patient prescribed a controlled substance at d/c from ED?: No Referrals: Jameson Lewis MD [Primary Care Provider] - 1-2 days Time of Disposition: 18:15
--- NOTE | 2024-08-11 17:49 | US ---
EXAMINATION TYPE: US venous doppler duplex LE RT DATE OF EXAM: 08/11/2024 5:38 PM COMPARISON: NONE CLINICAL INDICATION: Male, 49 years old with history of s/o RLE erythema, edema, warmth; Patient is a paraplegic, but denies any other signs, symptoms, or relevant history , Pain TECHNIQUE: The lower extremity deep venous system is examined utilizing real time linear array sonog pola with graded compression, color doppler sonography, and spectral doppler. SIDE PERFORMED: Right FINDINGS: VESSELS IMAGED: Common Femoral Vein Deep Femoral Vein Greater Saphenous Vein Femoral Vein Popliteal Vein Small Saphenous Vein Proximal Calf Veins Right Leg: Negative for DVT, Color Doppler imaging shows patency of the vessels. Spectral waveforms are within normal limits. Multiple lymph nodes seen within right groin Left Leg: N/O, Color Doppler imaging shows patency of the vessels. Spectral waveforms are within nor mal limits. IMPRESSION: No ultrasound evidence for deep venous thrombosis. [facility], , 08/11/2024 5:46 PM
[2024-08-11 18:05] VITALS: BP 126/70; PULSE 78; RESP 19; TEMP 99.7
[2024-08-11] MEDS: CLINDAMYCIN 150 MG CAP PO STA (18:30)
== END 2024-08-11 18:42 | disposition home or self-care (01) ==
LOC: EC 16:25
DX: L03.115 Cellulitis of right lower limb (principal); Z88.0 Allergy status to penicillin; Z87.891 Personal history of nicotine dependence
CPT/HCPCS: 99284

== ENCOUNTER → 2024-09-25 | Outpatient (CLI) | payer OTHER ==
--- NOTE | 2024-09-25 14:29 | US ---
EXAMINATION TYPE: US kidneys/renal and bladder DATE OF EXAM: 09/25/2024 COMPARISON: CT urogram 06/22/2022, 06/10/2021 CLINICAL INDICATION: Male, 49 years old with history of N28.1 CYST OF KIDNEY, ACQUIRED; Pt states h/o abnormal outside MRI, pt states h/o left kidney ureteral issues TECHNIQUE: Grayscale imaging of the bilateral kidneys and urinary bladder: FINDINGS: EXAM MEASUREMENTS: Right Kidney: 14.3 x 5.3 x 6.2 cm Left Kidney: 12.5 x 5.4 x 5.5 cm Right Kidney: Mildly dilated renal pelvis= 1.4 cm, otherwise appeared wnl Left Kidney: Fullness of renal pelvis/hydro, very similar in appearance when compared to prior CT in 2021 Bladder: wnl Bilateral Jets seen: Yes Mildly dilated right renal pelvis without over hydronephrosis. Similar severe chronic left hydronephr osis. No nephrolithiasis is seen. No solid renal masses are identified. The urinary bladder is anec hoic. Bilateral ureteral jets identified. IMPRESSION: 1. Severe chronic left hydronephrosis corresponding to prior CT urograms. 2. No right hydronephrosis. [facility], , 09/25/2024 2:27 PM
== END | disposition home or self-care (01) ==
LOC: RADUSWWP 13:52
PROVIDERS: ATTEND Urology
DX: N28.1 Cyst of kidney, acquired (principal); N13.39 Other hydronephrosis
CPT/HCPCS: 76770